=== PATIENT | female | born 1945 | race Caucasian/White ===

== ENCOUNTER 2022-03-12 15:58 | Inpatient (IN) | payer MEDICARE, OTHER, SELFPAY ==
[2022-03-12] VITALS (10 sets, daily range): BP systolic 137–185; BP diastolic 68–113; PULSE 92–111; RESP 16–24; TEMP 36.3–36.7; O2SAT 96–99; BMI 16.2; BMI 18.3
--- NOTE | 2022-03-12 16:14 | CT_ITS ---
INDICATION: head injury EXAMINATION: CT BRAIN - CT Head or Brain W/O Contrast Injection TECHNIQUE: Multiple axial images were obtained of the head without intravenous contrast. A radiation dose optimization technique was used for this scan. IV Contrast dosage and agent: None. RADIATION DOSAGE (If Supplied By Facility): CTDIvol = ( 44.99 ) mGy, DLP = ( 829.85 ) mGycm COMPARISON: No relevant prior examinations for comparison FINDINGS: HEMISPHERES: 1. The cerebral parenchyma, ventricular system, subarachnoid spaces have normal configuration and density. There is a normal gyral pattern. There is normal kahn/white differentiation. No midline shift.. 2. Minimal chronic deep white matter disease noted. 3. 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 4. No intraparenchymal mass, hemorrhage, or acute territorial infarct. CEREBELLUM - BRAINSTEM: The cerebellum, brainstem, basilar and suprasellar cisterns have normal appearance. No Chiari malformation. PITUITARY: Infundibulum and pituitary have normal configuration. Midline structures appear normal. CSF SPACES: Appropriate for age. No hydrocephalus. Basal cisterns are patent. VESSELS: 1. Extensive vascular calcifications involving the cavernous carotid vessels bilaterally. 2. No hyperdense vascular signs noted.. ORBITS AND PARANASAL SINUSES: 1. Normal appearance of the bony orbits. Normal appearance of the globes and retrobulbar soft tissues.. 2. Chronic sphenoid and ethmoid sinus mucosal thickening. No air-fluid levels present. BONY ELEMENTS: Bony elements of the cranial vault, facial skeleton and skull base have normal appearance. SCALP AND SOFT TISSUES: Normal appearance of the soft tissues of the scalp and the visualized face OTHER: None ASPECTS Score for Acute Strokes: 10 CT/Brain/Head without Contrast IMPRESSION: 1. 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 2. No mass, hemorrhage, or acute territorial infarct. 3. No intracranial evidence of acute traumatic injury. 4. No cranial facial fracture noted. 5. Chronic appearing sinus disease. 6. No intracranial mass, hemorrhage or acute territorial infarct. 7. 8. No radiographically significant sinus disease.. Electronically Signed: Zurdo Modi MD at 17:33 EDT ,
--- NOTE | 2022-03-12 16:14 | RAD_ITS ---
INDICATION: fall EXAMINATION/TECHNIQUE: X-RAY - XR Sacrum/Coccyx Min 2 Views COMPARISON: Imaging of the lumbar spine on the same date, 03/12/2022 FINDINGS: SACRUM/COCCYX: No displaced fracture, destructive or sclerotic lesions. Note that overlapping bowel shadows may however obscure fine detail in the frontal view. Postoperative changes are present involving the lower lumbar spine. SACRO-ILIAC JOINTS: The articular structures are unremarkable. SOFT TISSUES: No soft tissue swelling or gas. RAD/Sacrum-Coccyx min 2 Views IMPRESSION: Unremarkable sacro-coccygeal spine. Electronically Signed: Zurdo Modi MD at 18:44 EDT ,
--- NOTE | 2022-03-12 16:14 | RAD_ITS ---
INDICATION: fall EXAMINATION/TECHNIQUE: X-RAY - XR Spine Lumbar 2 or 3 Views COMPARISON: None. FINDINGS: VERTEBRAE: Vertebral body height is maintained, postoperative changes of pedicle screw posterior fixation from L3 to L5. There is a mild levoscoliotic curvature. No evidence of fracture or hardware failure. There is diffuse osteopenia. Normal appearance of the sacrum and sacroiliac joints. The pelvic ring is intact. DISCS: Disc spaces are maintained with the exception of postoperative changes likely representing intervertebral disc spacers at L3-4 and L4-5. INCLUDED ABDOMEN: Included bowel gas pattern is non-obstructive. RAD/Lumbar Spine 2 or 3 Views IMPRESSION: 1. Postoperative changes with pedicle screw posterior fixation and interbody fusion at L3-L5. 2. No evidence of fractures or hardware failure. 3. Levoscoliotic curvature is however noted. Electronically Signed: Zurdo Modi MD at 18:43 EDT ,
--- NOTE | 2022-03-12 16:15 | EKG12_ITS ---
Test Reason : FALL/SOB Blood Pressure : / mmHG Vent. Rate : 104 BPM Atrial Rate : 104 BPM P-R Int : 132 ms QRS Dur : 078 ms QT Int : 332 ms P-R-T Axes : 083 062 076 degrees QTc Int : 436 ms Sinus tachycardia Right atrial enlargement Inferior infarct , age undetermined Cannot rule out Anterior infarct , age undetermined Abnormal ECG Confirmed by KHADIJAH BRITT, VIVIEN ([id number]), sports editor PENNY GOMES ([id number]) on 03/15/2022 8:12:55 AM Referred By: AMRIT/JOIE Confirmed By:VIVIEN LUCIO MD
--- NOTE | 2022-03-12 16:17 | RAD_ITS ---
INDICATION: fall EXAMINATION/TECHNIQUE: X-RAY - XR Spine Cervical 2 or 3 Views COMPARISON: None. FINDINGS: VERTEBRAE: Vertebral body height is maintained. Lateral view only visualizes the cervical spine to the level of C5 however grossly normal alignment on AP view to the level of the thoracic spine. No fracture. There is a subtle grade 1 anterolisthesis of C4 on C5. Moderate facet hypertrophic changes noted from C3 to C5. The odontoid process has normal appearance. DISCS: Disc spaces are maintained. NECK SOFT TISSUES: No prevertebral soft tissue widening. LUNG APICES: Clear. RAD/Cerv Spine 2 or 3 Views IMPRESSION: 1. No evidence of fracture, limited visualization of the cervical spine on lateral view however. There is a grade 1 degenerative anterolisthesis of C4 on C5. 2. No fracture destructive bony process involving the visualized cervical spine. 3. Moderate facet arthropathy noted. Electronically Signed: Zurdo Modi MD at 18:39 EDT ,
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
[2022-03-12] MEDS: Ipratropium/Albuterol Sulfate 3 ML AMPUL.NEB INHALATION ×2 (16:22→20:16)
[2022-03-12 16:31] LABS: Absolute Lymphocyte Count 0.95 X10^3/uL (0.83-4.51); Absolute Neutrophil Count 16.4 X10^3/uL (2.0-7.7); Basophil# 0.03 X10^3/uL; Basophil% 0.2 % (0-1); Eosinophil# 0.04 X10^3/uL; Eosinophils% 0.2 % (0-5); Hematocrit 36.1 % (37-47); Hemoglobin 10.9 g/dL (12.0-15.0); Lymphocyte # 0.95 X10^3/ul (0.83-4.51); Lymphocyte % 5.1 % (19-41); Mean Corp Hgb Conc 30.2 g/dL (32-36); Mean Corpuscular Hgb 26.3 pg (27.0-32.0); Mean Platelet Vol. 9.4 fl (6.2-12.0); Monocyte# 0.99 X10^3/uL; Monocyte% 5.3 % (0-10); NRBC Flagged by Analyzer 0 % (0-5); Neutrophil # 16.41 X10^3/uL (2.7-7.7); Neutrophil % 88.3 % (47-70); Platelet Count 223 K/mm3 (150-450); RBC Distribution Width CV 13.6 % (11.6-14.6); RBC Distribution Width SD 42.7 fl (35.1-43.9); Red Blood Count 4.15 M/mm3 (4.2-5.4); White Blood Count 18.6 K/mm3 (4.4-11.0)
[2022-03-12] MEDS: MethylPREDNISolone 125 MG/2 ML Vial 80 MG IV (16:40)
[2022-03-12] MEDS: Albuterol 2.5 MG/3 ML VIAL.NEB. INHALATION ×2 (16:49→17:33)
[2022-03-12 17:00] LABS: Anion Gap 8 (5-15); BUN 17 mg/dL (7-18); BUN/Creat Ratio 32.3 RATIO (10-20); Calcium,Total 9.2 mg/dL (8.5-10.1); Chloride 103 mmol/L (98-107); Creatinine, Serum 0.53 mg/dL (0.55-1.02); EST Glomerular Filtration Rate 120 mL/min (>60); Est Glom Filt Rate - Afr Amer 146 mL/min (>60); Glucose 119 mg/dL (74-106); Potassium 3.4 mmol/L (3.5-5.1); Sodium Level 140 mmol/L (136-145); Troponin-I HS (w/2H Reflex) 412 pg/mL (3.0-54.0)
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
--- NOTE | 2022-03-12 17:02 | ED.RN ---
trop 412 called from the lab
[2022-03-12] MEDS: fentaNYL 100 MCG/2 ML Ampul 50 MCG IV (17:38)
[2022-03-12 18:29] LABS: Reflex Troponin-HS? (from REC) Y
--- NOTE | 2022-03-12 19:08 | HP.PCM.HOS_ITS ---
HPI - General General Date of Admission: 03/12/22 Date of Service: 03/12/22 Chief Complaint: shortness of breath HPI Narrative KRISSY CARDENAS, is a 76 F who presents with shortness of breath. Over the preceding few days, patient has been more short of breath than her baseline. Patient does have chronic respiratory failure on 2 L of oxygen continuous due to COPD. Today, the patient was at a [email or web address] meet where it was windy and cold. Patient was began to get more short of breath despite being on her oxygen and her daughter was trying to get her out. Patient was sitting on her Rollator as her daughter was wheeling her out and then it hit a bump in the sidewalk and it felt backwards. Patient struck the back of her head but did not lose consciousness. The daughter, who was helping her is present and stated that it was a slow fall. Patient was brought here via EMS and had cervical spine x- ray sacral x-ray and lumbar spine x-ray that showed no acute process. Head CT showed no intracranial process. Patient received bronchodilators, methylprednisolone and a dose of IV fentanyl in the emergency room. Patient is complaining of low back pain. Patient had a troponin that was elevated in the emergency room at 412 and then went to the 755. Patient denies any chest pain. [facility] Medical History (Updated 03/12/22 @ 19:[address] Xavi Almendarez ) Congestive heart failure (CHF) COPD (chronic obstructive pulmonary disease) History of breast cancer PAD (peripheral artery disease) Protein calorie malnutrition Takotsubo cardiomyopathy Home Medications albuterol sulfate 90 mcg/actuation aerosol inhaler 2 puff inhalation Q4H PRN SOB 03/12/22 [History Last Taken Unknown] atorvastatin 40 mg tablet 40 mg PO QHS 03/12/22 [History Last Taken Unknown] budesonide-formoterol HFA 160 mcg-4.5 mcg/actuation aerosol inhaler (Symbicort) 2 puff inhalation BID 03/12/22 [History Last Taken Unknown] bupropion HCl 150 mg 24 hr tablet, extended release 150 mg PO BID 03/12/22 [History Last Taken Unknown] carvedilol 3.125 mg tablet 3.125 mg PO BID 03/12/22 [History Last Taken Unknown] clopidogrel 75 mg tablet 75 mg PO DAILY 03/12/22 [History Last Taken Unknown] fluticasone propionate 50 mcg/actuation nasal spray,suspension 1 spray intranasal BID 03/12/22 [History Last Taken Unknown] furosemide 20 mg tablet 20 mg PO DAILY 03/12/22 [History Last Taken Unknown] gabapentin 300 mg capsule 300 mg PO QHS 03/12/22 [History Last Taken Unknown] hydromorphone 4 mg tablet 4 mg PO BID 03/12/22 [History Last Taken Unknown] isosorbide mononitrate 30 mg tablet,extended release 24 hr 30 mg PO DAILY 03/12/22 [History Last Taken Unknown] levothyroxine 100 mcg tablet 100 mcg PO DAILY 03/12/22 [History Last Taken Unknown] pantoprazole 40 mg tablet,delayed release 40 mg PO DAILY 03/12/22 [History Last Taken Unknown] sacubitril 24 mg-valsartan 26 mg tablet (Entresto) 1 tab PO BID 03/12/22 [History Last Taken Unknown] sertraline 50 mg tablet 50 mg PO DAILY 03/12/22 [History Last Taken Unknown] tiotropium bromide 18 mcg capsule with inhalation device (Spiriva with HandiHaler) 1 cap inhalation DAILY 03/12/22 [History Last Taken Unknown] tizanidine 2 mg tablet 2 mg PO TID PRN Muscle Spasm 03/12/22 [History Last Taken Unknown] tramadol 50 mg tablet 1 mg PO Q8H PRN Pain 03/12/22 [History Last Taken Unknown] Allergy/AdvReac Type Severity Reaction Status Date / Time clindamycin Allergy GERD Verified 03/12/22 16:02 erythromycin base Allergy GERD Verified 03/12/22 16:02 lemon Allergy Anaphylaxis Verified 03/12/22 16:02 win[place]ago Allergy Anaphylaxis Verified 03/12/22 16:02 morphine Allergy Itching Verified 03/12/22 16:02 walnut [walnuts] Allergy Angioedema Verified 03/12/22 16:02 Family History (Updated 03/12/22 @ 19:[address] Xavi Almendarez DO) Mother COPD (chronic obstructive pulmonary disease) Heart disease Surgical History (Updated 03/12/22 @ 19:[address] Xavi Almendarez DO) H/O arterial bypass of lower limb History of partial mastectomy of left breast Previous back surgery Social History (Updated 03/12/22 @ 19:[address] Xavi Jopperi, DO) Smoking Status: Former smoker how long ago did patient quit smokin alcohol intake: current alcohol intake frequency: other details: rare ROS ROS Narrative No fever chills. No sore throat or rhinitis. No dysuria but has noticed a foul odor in her urine. Vital Signs Vital Signs Vital Signs: 03/12/22 16:04 03/12/22 16:04 03/12/22 16:24 Temperature 36.6 C Temperature Source Oral Pulse Rate 101 H 102 H Respiratory Rate 22 H 24 H Respiratory Effort Short of Breath Respiratory Depth Normal Respiratory Pattern Normal Blood Pressure 163/82 H Blood Pressure Mean 109 Pulse Ox 98 Oxygen Delivery Method Room Air Nasal Cannula Oxygen Flow Rate (L/min) 2 2 03/12/22 16:24 03/12/22 16:50 03/12/22 17:54 Temperature Temperature Source Pulse Rate 95 Respiratory Rate 16 Respiratory Effort Respiratory Depth Respiratory Pattern Blood Pressure Blood Pressure Mean Pulse Ox 97 Oxygen Delivery Method Nasal Cannula Nasal Cannula Oxygen Flow Rate (L/min) 2 2 03/12/22 18:21 03/12/22 18:22 Temperature 36.7 C Temperature Source Oral Pulse Rate 94 94 Respiratory Rate 17 17 Respiratory Effort Respiratory Depth Respiratory Pattern Blood Pressure 137/68 H 137/68 H Blood Pressure Mean 91 91 Pulse Ox 96 96 Oxygen Delivery Method Nasal Cannula Room Air Oxygen Flow Rate (L/min) 2 Weight Weight: 44.4 kg Body Mass Index (BMI) 16.2 Physical Exam Const alert and no apparent distress Constitutional Narrative: No respiratory distress. No conversational dyspnea. HEENT normocephalic and head/scalp atraumatic HEENT Narrative: Temporal wasting. Mucous membranes moist Eyes Eyes Narrative: No icterus Neck no lymphadenopathy Neck Narrative: Positive JVD. No thyromegaly. Resp Resp Narrative: Diminished throughout with faint wheezings. Cardio regular rate, regular rhythm, S1 normal heart sound and S2 normal heart sound GI normal to inspection, nondistended, normoactive bowel sounds, soft to palpation, non-tender and non-distended Extremity Extremity Narrative: Muscle wasting throughout. +1 dorsalis pedal pulses in the feet bilaterally. Neuro oriented x3 and CN's II-XII intact bilaterally Psych affect normal Results Lab / Micro Data Attestation: I reviewed the patient's lab results. Result Diagrams: 03/12/22 16:25 03/12/22 16:25 Labs: Laboratory Results - last 24 hr 03/12/22 16:25: WBC 18.6 H, RBC 4.15 L, Hgb 10.9 L, Hct 36.1 L, MCV 87.0, MCH 26.3 L, MCHC 30.2 L, RDW Std Deviation 42.7, RDW Coeff of Haley 13.6, Plt Count 223, MPV 9.4, Immature Gran % (Auto) 0.900, Neut % (Auto) 88.3 H, Lymph % (Auto) 5.1 L, [place] % (Auto) 5.3, Eos % (Auto) 0.2, Baso % (Auto) 0.2, Absolute Neuts (auto) 16.4 H, Absolute Lymphs (auto) 0.95, Nucleated RBC % 0 03/12/22 16:25: Sodium 140, Potassium 3.4 L, Chloride 103, Carbon Dioxide 29.0, Anion Gap 8, BUN 17, Creatinine 0.53 L, Estim Creat Clear Calc 34.60, Est GFR (MDRD) Af Amer 146, Est GFR (MDRD) Non-Af 120, BUN/Creatinine Ratio 32.3 H, Glucose 119 H, Calcium 9.2, Troponin I High Sens 412 H* EKG Initial EKG: Attestation: I personally reviewed and interpreted this EKG as follows: Prior EKG tracings: available for review EKG Rhythm Intrepretation: Sinus Tachycardia (Right in short management with inferior Q waves. No prior EKG to be able to compare to) Radiology Impression Brain CT 03/12/22 16:14 IMPRESSION: 1. 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 2. No mass, hemorrhage, or acute territorial infarct. 3. No intracranial evidence of acute traumatic injury. 4. No cranial facial fracture noted. 5. Chronic appearing sinus disease. 6. No intracranial mass, hemorrhage or acute territorial infarct. 7. 8. No radiographically significant sinus disease.. Electronically Signed: Zurdo Modi MD at 17:33 EDT , Lumbar Spine X-Ray 03/12/22 16:14 IMPRESSION: 1. Postoperative changes with pedicle screw posterior fixation and interbody fusion at L3-L5. 2. No evidence of fractures or hardware failure. 3. Levoscoliotic curvature is however noted. Electronically Signed: Zurdo Modi MD at 18:43 EDT , Sacrum and Coccyx X-Ray 03/12/22 16:14 IMPRESSION: Unremarkable sacro-coccygeal spine. Electronically Signed: Zurdo Modi MD at 18:44 EDT , Cervical Spine X-Ray 03/12/22 16:17 IMPRESSION: 1. No evidence of fracture, limited visualization of the cervical spine on lateral view however. There is a grade 1 degenerative anterolisthesis of C4 on C5. 2. No fracture destructive bony process involving the visualized cervical spine. 3. Moderate facet arthropathy noted. Electronically Signed: Zurdo Modi MD at 18:39 EDT , Chest X-Ray 03/12/22 17:00 IMPRESSION: 1. Diffuse interstitial prominence at the lung bases. Mild interstitial infiltrate versus atelectasis are considerations. 2. No consolidation, effusion or pneumothorax. 3. No acute bony changes. Electronically Signed: Zurdo Modi MD at 18:41 EDT , Assessment & Plan Assessment/Plan (1) COPD exacerbation: PLAN: Symptoms though her symptoms have been going on for some period of time. Got worse while she was [place] worse cold and may have exacerbated her symptoms further. Plan: * Bronchodilators * Steroids (2) Non-STEMI (non-ST elevated myocardial infarction): PLAN: Suspect type II event though the troponins went from 412 to 755. Likely due to the patient's transient hypoxia and underlying likely cardiomyopathy. Patient had a heart cath last year at [place] that showed that she had Takotsubo's cardiomyopathy. Plan: * If the third troponin comes back trending higher then would recommend anticoagulation and cardiology consultation. Being that she is not having any chest pain whatsoever and having had a relatively recent cardiac catheterization denies any urgency at this point time cardiology involvement. Though Dr. Nova was contacted through the emergency room. * Check 2D echocardiogram * Check records from [place], where her cardiac catheterization was performed. (3) Acute and chronic respiratory failure with hypoxia: PLAN: Due to COPD exacerbation I do not feel the patient is having a CHF exacerbation as x-ray does not look wet nor does she have any peripheral edema Patient's baseline oxygen is 2 L continuous (4) Fall: QUALIFIERS: Encounter type: initial encounter Qualified Code(s): W19.XXXA - Unspecified fall, initial encounter PLAN: This was due to her Rollator, as patient was being cooled, hitting either raised concrete or some kind of bump let the daughter to lose control of it and the patient fell backwards. X-rays and CAT scan were negative for any acute process. Will have PT OT evaluate her and case management is facilitate discharge planning. It is unclear if patient will require higher level of physical therapy needs upon discharge. (5) Protein calorie malnutrition: PLAN: Likely due to the patient's chronic medical conditions Plan: * At supplements with Ensure * Consult nutrition for further recommendations PLAN: Plan Chronic conditions * PAD: Continue with atorvastatin, clopidogrel. Patient is going to be fol lowing up with Dr. Carnes for further follow-up * Chronic pain: Reviewed OARRS. Confirm the patient is taking tramadol as well as gabapentin. Has not received a prescription for hydromorphone since A ugust. * Hypothyroidism: Continue levothyroxine * Depression: Continue sertraline VTE prophylaxis: Low molecular weight heparin CODE STATUS: Addressed with the patient. Patient wishes to be DNR Comfort Care arrest. She is okay with short-term intubation. Charges/Coding Visit Charges Inpatient E&M: 33096 Init Hosp L3
[2022-03-12 19:13] LABS: Troponin-I HS 755 pg/mL (3.0-54.0)
--- NOTE | 2022-03-12 19:14 | ED.RN ---
CRITICAL TROPONIN LEVEL OF [address] HOLLAND NOTIFIED
--- NOTE | 2022-03-12 19:43 | ECHOD_ITS ---
Reason For Study: NSTEMI Procedure This was a 2D Doppler, Color Flow transthoracic echocardiogram. The study was technically difficult. Exam performed portable in patient room. Left Ventricle Normal LV size. Left ventricular systolic function is hyperdynamic. The estimated ejection fraction is 75 %. Diastolic function is indeterminate. No regional wall motion abnormalities noted. Right Ventricle Normal RV size. Normal systolic function. Atria Normal left atrium. Normal right atrium. No doppler evidence for ASD. Mitral Valve There is no mitral annular calcification. Normal mitral valve. Trivial mitral valve insufficiency. Tricuspid Valve Normal tricuspid valve. Mild tricuspid valve insufficiency. Right ventricular systolic pressure estimated to be 54 mmHg. Aortic Valve Trisinus/trileaflet aortic valve. Mild focal aortic valve calcification. Pulmonic Valve The pulmonic valve is not well visualized. Great Vessels The aortic root is not well visualized. 2D echocardiographic images of the IVC demonstrate a somewhat linear mobile echodensity of uncertain etiology. Concern for further noncardiac/radiologic evaluation of this area as clinically indicated. Pericardium/Pleural No pericardial effusion. MMode/2D Measurements & Calculations RVDd: 2.9 cm LAV(MOD-sp4): 27.5 ml LVAd ap4: 21.3 cm2 LVLd ap4: 7.3 cm EDV(MOD-sp4): 52.1 ml EDV(sp4-el): 52.9 ml LVAs ap4: 11.3 cm2 LVLs ap4: 5.6 cm ESV(MOD-sp4): 19.6 ml ESV(sp4-el): 19.4 ml EF(MOD-sp4): 62.5 % EF(sp4-el): 63.4 % SV(MOD-sp4): 32.6 ml SV(sp4-el): 33.5 ml LA A4 area: 12.3 cm2 RA A4 area: 12.2 cm2 Time Measurements MV dec time: 0.15 sec Doppler Measurements & Calculations MV E max jim: 84.6 cm/sec Lat Peak E' Jim: 9.4 cm/sec Med Peak E' Jim: 9.4 cm/sec MV A max jim: 103.2 cm/sec E/E' lat: 9.0 E/E' med: 9.0 MV E/A: 0.82 MV V2 max: 124.0 cm/sec MV dec slope: 554.5 cm/sec2 Ao V2 max: 183.1 cm/sec MV max P.2 mmHg Ao max P.4 mmHg MV V2 mean: 83.9 cm/sec Ao V2 mean: 131.7 cm/sec MV mean P.1 mmHg Ao mean P.7 mmHg MV V2 VTI: 26.0 cm Ao V2 VTI: 36.1 cm MR max jim: 523.9 cm/sec PA V2 max: 168.9 cm/sec TR max jim: 340.5 cm/sec MR max P.8 mmHg TR max P.4 mmHg ECHO/Echo Complete Interpretation Summary Left ventricular systolic function is hyperdynamic. The estimated ejection fraction is 75 %. Trivial mitral valve insufficiency. Mild tricuspid valve insufficiency. Mild focal aortic valve calcification. Right ventricular systolic pressure estimated to be 54 mmHg c/w pulmonary hyper tension. Diastolic function is indeterminate. 2D echocardiographic images of the IVC demonstrate a somewhat linear mobile ech odensity of uncertain etiology. Concern for further noncardiac/radiologic evaluation of this area as clinically indicated. Ordering Physician: Xavi Almendarez Referring Physician: JAMIL PCP Performed By: Vanessa Rosas RCS
--- NOTE | 2022-03-12 19:43 | EKG12_ITS ---
Test Reason : NSTEMI Blood Pressure : / mmHG Vent. Rate : 102 BPM Atrial Rate : 102 BPM P-R Int : 136 ms QRS Dur : 078 ms QT Int : 346 ms P-R-T Axes : 085 035 078 degrees QTc Int : 450 ms Sinus tachycardia Inferior infarct , age undetermined Cannot rule out Anterior infarct , age undetermined Abnormal ECG Confirmed by KHADIJAH BRITT, VIVIEN ([id number]), sports editor PENNY GOMES ([id number]) on 03/15/2022 11:03:53 AM Referred By: Confirmed By:VIVIEN LUCIO MD
[2022-03-12] MEDS: Potassium Chloride Oral Tablet 20 MEQ 40 MEQ PO (20:41)
[2022-03-12] MEDS: oxyCODONE 5 MG Tablet PO (20:42)
--- NOTE | 2022-03-12 21:25 | PCM.HOSP.N ---
Hospitalist Note Trop trending upward. Given acute presentation still suspected demand; however, to be cautious will transition to heparin drip, obtain coags, add asa in addition to plavix, ECHO already ordered, obtain mag level and FLP in AM.
[2022-03-12 22:04] LABS: International Normalized Ratio 1.3; Prothrombin Time (Protime)PT. 15.7 SECONDS (11.7-14.9)
[2022-03-12] MEDS: Atorvastatin Calcium 40 MG Tablet PO (22:24)
[2022-03-12] MEDS: Carvedilol 3.125 MG TABLET PO (22:24)
[2022-03-12] MEDS: buPROPion (XL) 150 MG TABLET.XL PO (22:24)
[2022-03-12] MEDS: Gabapentin 300 MG Capsule PO (22:24)
[2022-03-12] MEDS: SACUBITRIL/VALSARTAN 24/26 MG TABLET 1 EACH PO (22:25)
[2022-03-12] MEDS: Acetaminophen 500 MG Tablet 1000 MG PO (22:25)
[2022-03-12] MEDS: Fluticasone 0.05% 1 SPRAY NASAL.SRY NASAL (22:25)
[2022-03-12 22:29] LABS: Magnesium 1.8 mg/dL (1.6-2.6); Troponin-I HS 908 pg/mL (3.0-54.0)
[2022-03-12] MEDS: Heparin Injection (Vial) 5,000 UNIT/ML VIAL 3500 UNIT IV (22:31)
[2022-03-12] MEDS: HEPARIN/D5w 25,000 UNITS 25,000 UNITS/250 ML IV.SOLN. 7 UNITS CONT INF (22:32)
[2022-03-13] VITALS (20 sets, daily range): BP systolic 111–154; BP diastolic 62–86; PULSE 84–100; RESP 16–25; TEMP 35.9–36.9; O2SAT 93–99
[2022-03-13] MEDS: Ipratropium/Albuterol Sulfate 3 ML AMPUL.NEB INHALATION ×6 (01:15→23:30)
[2022-03-13] MEDS: tiZANidine HCl 2 MG Tablet PO ×2 (01:39→17:57)
[2022-03-13] MEDS: oxyCODONE 5 MG Tablet PO ×3 (04:22→16:00)
[2022-03-13 04:41] LABS: Basophil# 0.02 X10^3/uL; Basophil% 0.2 % (0-1); Hematocrit 35.5 % (37-47); Hemoglobin 10.7 g/dL (12.0-15.0); Lymphocyte % 5.3 % (19-41); Mean Corp Hgb Conc 30.1 g/dL (32-36); Mean Corpuscular Hgb 25.8 pg (27.0-32.0); Mean Corpuscular Volume 85.7 fL (81-99); Mean Platelet Vol. 9.6 fl (6.2-12.0); Monocyte% 3.8 % (0-10); NRBC Flagged by Analyzer 0 % (0-5); Neutrophil # 11.96 X10^3/uL (2.7-7.7); Neutrophil % 90.2 % (47-70); Platelet Count 204 K/mm3 (150-450); RBC Distribution Width CV 13.7 % (11.6-14.6); RBC Distribution Width SD 42.8 fl (35.1-43.9); Red Blood Count 4.14 M/mm3 (4.2-5.4); White Blood Count 13.3 K/mm3 (4.4-11.0)
[2022-03-13 05:00] LABS: Partial Thromboplast Time 128.5 Seconds (24.1-36.2)
[2022-03-13] MEDS: Acetaminophen 500 MG Tablet 1000 MG PO ×3 (05:08→21:19)
[2022-03-13] MEDS: Levothyroxine 100 MCG Tablet PO (05:09)
[2022-03-13 05:11] LABS: Mucous, Urine 0 SEEN /hpf (<or=2+); Red Blood Cells-Urine 0 SEEN /hpf (0-5)
[2022-03-13 05:18] LABS: Anion Gap 6 (5-15); BUN 13 mg/dL (7-18); BUN/Creat Ratio 29.6 RATIO (10-20); Calcium,Total 9.2 mg/dL (8.5-10.1); Chloride 105 mmol/L (98-107); Cholesterol 188 mg/dL (200); Creatinine, Serum 0.44 mg/dL (0.55-1.02); EST Glomerular Filtration Rate 149 mL/min (>60); Est Glom Filt Rate - Afr Amer 180 mL/min (>60); Estimated Creatinine Clearance 33.19 ml/min; Glucose 165 mg/dL (74-106); High Density Lipoprotein 95 mg/dL; Potassium 4.7 mmol/L (3.5-5.1); Sodium Level 140 mmol/L (136-145); Triglycerides 51 mg/dL; Very Low Density Lipoprotein 10 mg/dL (5-40)
[2022-03-13 05:27] LABS: Color, Urine Yellow (Yellow); Glucose, Dipstick Normal (Normal); Ketone-Dipstick 15 mg/dl (Negative); Leukocyte Esterase-Dipstick 25 /ul (Negative); Nitrite-Dipstick Positive (Negative); Occult Blood-Urine 25 /ul (Negative); Protein-Dipstick 30 mg/dl (Negative); Specific Gravity, Urine 1.015 (1.002-1.030); Urine Bilirubin Dipstick Negative (Negative); Urine Clarity Sl. Cloudy (Clear); Urine Urobilinogen Normal (Normal)
[2022-03-13 05:53] LABS: Bacteria 4+ /hpf (None Seen); Squamous Epithelial Cells - UA 0-5 SEEN /hpf (5-10); White Blood Cells 0-5 SEEN /hpf (0-5)
[2022-03-13] MEDS: Ceftriaxone 1 GM/50 ML BAG IV (06:25)
[2022-03-13] MEDS: 0.9% Saline Lock 10 ML Syringe IV ×2 (06:53→13:42)
[2022-03-13] MEDS: Albuterol 2.5 MG/3 ML VIAL.NEB. INHALATION (07:17)
[2022-03-13] MEDS: Ensure Clear 120 ML Liquid PO ×2 (10:19→13:42)
[2022-03-13] MEDS: Fluticasone 0.05% 1 SPRAY NASAL.SRY NASAL ×2 (10:20→21:18)
[2022-03-13] MEDS: Aspirin 81 MG TAB.CHEW PO (10:42)
[2022-03-13] MEDS: Carvedilol 3.125 MG TABLET PO ×2 (10:42→21:18)
[2022-03-13] MEDS: SACUBITRIL/VALSARTAN 24/26 MG TABLET 1 EACH PO ×2 (10:42→21:19)
[2022-03-13] MEDS: Isosorbide Mononitrate 30 MG Tablet PO (10:43)
[2022-03-13] MEDS: Pantoprazole Sodium 40 MG Tablet PO (10:43)
[2022-03-13] MEDS: Furosemide 20 MG Tablet PO (10:43)
[2022-03-13] MEDS: Sertraline 50 MG Tablet PO (10:43)
[2022-03-13] MEDS: buPROPion (XL) 150 MG TABLET.XL PO ×2 (10:43→21:19)
[2022-03-13] MEDS: Clopidogrel Bisulfate 75 MG Tablet PO (10:43)
--- NOTE | 2022-03-13 13:38 | PCM.PN.HOSP ---
Subjective Subjective Follow-up on acute COPD exacerbation/Non-STEMI: Patient was seen and examined. She complains of pain in her back. Denies any new complaints. Denies any chest pain or dizziness or palpitations. Objective Data Objective Data Vital Signs: Vital Signs Temp Pulse Resp BP Pulse Ox O2 Del Method O2 Flow Rate 96.7 F L 84 20 H 136/64 H 93 Nasal Cannula 2 03/13/22 10:10 03/13/22 10:26 03/13/22 10:26 03/13/22 10:10 03/13/22 10:10 03/13/22 10:10 03/13/22 10:10 Oxygen Flow Rate (L/min) 2 Oxygen Delivery Method Nasal Cannula Weight: 42.6 kg Body Mass Index (BMI) 18.3 Intake & Output: Intake and Output for Last 24 Hours 03/11/22 03/12/22 03/13/22 23:59 23:59 23:59 Intake Total 95.85 / 95.85 Balance 95.85 / 95.85 Medical Nutrition Assessment Dietitian: Malnutrition Criteria Met Start: 03/13/22 12:30 Freq: Status: Active Protocol: Document 03/13/22 12:30 AG (Rec: 03/13/22 12:30 [id number]) Nutrition Malnutrition Evidence of Malnutrition Exists Yes Malnutrition (moderate): Chronic Evidenced By Suboptimal Energy Intake ( Moderate),Physical Changes ( Moderate) Clinical Problem Chronic Disease or Condition Related Malnutrition Etiology moderate, chronic malnutrition related to inadequate energy intake Signs/Symptoms as evidenced by estimated PO intake meeting <75% of estimated energy needs >1 month; moderate muscle wasting /fat loss evident per physical exam in orbital, temporal, clavicle, and acromion areas; BMI 18.3 Status Active Problem Recommendation Dietitian Recommendations/Changes continue cardiac diet as ordered; will consider liberalizing diet if PO intake worsens; will increase ensure clear to 120mL 4x/day w/ medpass and add 120mL ensure plus high protein TID w/ meals for additional calories/ protein if consumed. Lab / Micro Data Result Diagrams: 03/13/22 04:25 03/13/22 04:15 Labs: Laboratory Results - last 24 hr 03/12/22 16:25: WBC 18.6 H, RBC 4.15 L, Hgb 10.9 L, Hct 36.1 L, MCV 87.0, MCH 26.3 L, MCHC 30.2 L, RDW Std Deviation 42.7, RDW Coeff of Haley 13.6, Plt Count 223, MPV 9.4, Immature Gran % (Auto) 0.900, Neut % (Auto) 88.3 H, Lymph % (Auto) 5.1 L, [place] % (Auto) 5.3, Eos % (Auto) 0.2, Baso % (Auto) 0.2, Absolute Neuts (auto) 16.4 H, Absolute Lymphs (auto) 0.95, Nucleated RBC % 0 03/12/22 16:25: Sodium 140, Potassium 3.4 L, Chloride 103, Carbon Dioxide 29.0, Anion Gap 8, BUN 17, Creatinine 0.53 L, Estim Creat Clear Calc 34.60, Est GFR (MDRD) Af Amer 146, Est GFR (MDRD) Non-Af 120, BUN/Creatinine Ratio 32.3 H, Glucose 119 H, Calcium 9.2, Troponin I High Sens 412 H* 03/12/22 18:40: Troponin I High Sens 755 H* 03/12/22 21:48: Magnesium 1.8, Troponin I High Sens 908 H* 03/12/22 21:48: PT 15.7 H, INR 1.3, APTT 34.0 03/13/22 03:23: Urine Color Yellow, Urine Clarity Sl. Cloudy, Urine pH 6.0, Ur Specific [place] 1.015, Urine Protein 30 H, Urine Glucose (UA) Normal, Urine Ketones 15 H, Urine Occult Blood 25 H, Urine Nitrite Positive H, Urine Bilirubin Negative, Urine Urobilinogen Normal, Ur Leukocyte Esterase 25 H, Urine RBC 0 SEEN, Urine WBC 0-5 SEEN, Ur Squamous Epith Cells 0-5 SEEN, Urine Bacteria 4+, Urine Mucus 0 SEEN 03/13/22 04:15: Sodium 140, Potassium 4.7, Chloride 105, Carbon Dioxide 29.0, Anion Gap 6, BUN 13, Creatinine 0.44 L, Estim Creat Clear Calc 33.19, Est GFR (MDRD) Af Amer 180, Est GFR (MDRD) Non-Af 149, BUN/Creatinine Ratio 29.6 H, Glucose 165 H, Calcium 9.2, Magnesium 2.0, Triglycerides 51, Cholesterol 188, LDL Cholesterol 83, VLDL Cholesterol 10, HDL Cholesterol 95 03/13/22 04:25: WBC 13.3 H, RBC 4.14 L, Hgb 10.7 L, Hct 35.5 L, MCV 85.7, MCH 25.8 L, MCHC 30.1 L, RDW Std Deviation 42.8, RDW Coeff of Haley 13.7, Plt Count 204, MPV 9.6, Immature Gran % (Auto) 0.500, Neut % (Auto) 90.2 H, Lymph % (Auto) 5.3 L, [place] % (Auto) 3.8, Eos % (Auto) 0.0, Baso % (Auto) 0.2, Absolute Neuts (auto) 12.0 H, Absolute Lymphs (auto) 0.70 L, Nucleated RBC % 0 03/13/22 04:25: APTT 128.5 H* Radiography Diagnostic Testing: Radiology Impression Brain CT 03/12/22 16:14 IMPRESSION: 1. 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 2. No mass, hemorrhage, or acute territorial infarct. 3. No intracranial evidence of acute traumatic injury. 4. No cranial facial fracture noted. 5. Chronic appearing sinus disease. 6. No intracranial mass, hemorrhage or acute territorial infarct. 7. 8. No radiographically significant sinus disease.. Electronically Signed: Zurdo Modi MD at 17:33 EDT , Lumbar Spine X-Ray 03/12/22 16:14 IMPRESSION: 1. Postoperative changes with pedicle screw posterior fixation and interbody fusion at L3-L5. 2. No evidence of fractures or hardware failure. 3. Levoscoliotic curvature is however noted. Electronically Signed: Zurdo Modi MD at 18:43 EDT , Sacrum and Coccyx X-Ray 03/12/22 16:14 IMPRESSION: Unremarkable sacro-coccygeal spine. Electronically Signed: Zurdo Modi MD at 18:44 EDT , Cervical Spine X-Ray 03/12/22 16:17 IMPRESSION: 1. No evidence of fracture, limited visualization of the cervical spine on lateral view however. There is a grade 1 degenerative anterolisthesis of C4 on C5. 2. No fracture destructive bony process involving the visualized cervical spine. 3. Moderate facet arthropathy noted. Electronically Signed: Zurdo Modi MD at 18:39 EDT , Chest X-Ray 03/12/22 17:00 IMPRESSION: 1. Diffuse interstitial prominence at the lung bases. Mild interstitial infiltrate versus atelectasis are considerations. 2. No consolidation, effusion or pneumothorax. 3. No acute bony changes. Electronically Signed: Zurdo Modi MD at 18:41 EDT , Physical Exam Narrative Physical exam: General: Alert, Oriented x3, Cooperative, appears very frail HEENT: Atraumatic Oral: Moist Mucosa Neck: Supple Lungs:Diminished to auscultation Cardiovascular: HS I+II, regular, no murmurs Abdomen: Bowel Sounds Present, Soft, Non Tender Extremities: No edema Skin: No rashes, No breakdown Neurological: Grossly intact Psych/Mental Status: Appropriate Assessment & Plan Assessment/Plan (1) Acute and chronic respiratory failure with hypoxia: (2) Non-STEMI (non-ST elevated myocardial infarction): (3) COPD exacerbation: PLAN: Plan 1.Acute COPD exacerbation in a patient with chronic hypoxic respiratory failure, on 2 L of oxygen Respiratory panel is pending Chest x-ray shows diffuse interstitial prominence of the lung bases, mild interstitial infiltrate versus atelectasis We will continue with breathing treatment, IV steroids, encourage use of incentive spirometer Wean off oxygen for SPO2 more than 94% 2. Acute non-STEMI, started on heparin drip Continue on Coreg, aspirin, Plavix, atorvastatin, isosorbide, Entresto 2D echo is pending Cardiology consulted 3. Acute UTI, urine cultures pending, continue on IV ceftriaxone 4. Recent falls/chronic pain syndrome, Brain CT is unremarkable Lumbar spine x-ray shows postoperative changes with pedicle screw posterior fixation interbody fusion at L3-L5 Sacral and coccygeal x-ray unremarkable CT of the spine is also unremarkable Continue on gabapentin, scheduled Tylenol PT and OT to evaluate and treat 5. Malnutrition, moderate, chronic, continue on supplements 6. Hypothyroidism, continue on Synthroid 7. Depression, continue Zoloft, bupropion 8. DVT Prophylaxis?on heparin drip Charges/Coding Visit Charges Inpatient E&M: 06738 Subs Hosp L2
[2022-03-13 14:22] LABS: Partial Thromboplast Time 36.4 Seconds (24.1-36.2)
[2022-03-13] MEDS: Calcium Carbonate 500 MG Tablet PO (14:45)
[2022-03-13] MEDS: Heparin Injection (Vial) 5,000 UNIT/ML VIAL IV (14:45)
--- NOTE | 2022-03-13 15:24 | PCM.CONS.C ---
Assessment & Plan Assessment/Plan (1) Elevated troponin: PLAN: Likely type II in the setting of COPD exacerbation and anemia. She had coronary angiography in January 2021 and it did not show significant obstructive CAD. She did have Takotsubo cardiomyopathy at that time. It is possible that she has recurrence of Takotsubo cardiomyopathy at this time as well. It is reasonable to check a 2D echo. I feel that it is reasonable not to anticoagulate the patient or change her home medications for CAD at this time. HPI Consult Data Date of Consult: 03/13/22 HPI Narrative Reason for Consultation: Elevated troponin HPI Narrative: KRISSY CARDENAS, is a 76 F who presents with shortness of breath. She is being treated for COPD exacerbation. Shortness of breath has improved but not back to baseline. She feels better after breathing treatments. Cardiology consult was requested as her troponin went up to the 900s. Patient has had heart caths twice in the last 3 years. She had mild nonobstructive disease. Her last heart cath was in January 2021. At that time her EF was 35% and in the setting of mild CAD she was diagnosed with Takotsubo cardiomyopathy. A follow-up echo in June of this year showed no regional wall motion abnormalities and an EF of around 65%. Patient also has anemia with a hemoglobin of 10.5. She denies any chest pain. [facility]LY [facility] Medical History (Updated 03/12/22 @ 19:[address] Xavi Almendarez, ) Congestive heart failure (CHF) COPD (chronic obstructive pulmonary disease) History of breast cancer PAD (peripheral artery disease) Protein calorie malnutrition Takotsubo cardiomyopathy Home Medications albuterol sulfate 90 mcg/actuation aerosol inhaler 2 puff inhalation Q4H PRN SOB 03/12/22 [History Last Taken Unknown] atorvastatin 40 mg tablet 40 mg PO QHS 03/12/22 [History Last Taken Unknown] budesonide-formoterol HFA 160 mcg-4.5 mcg/actuation aerosol inhaler (Symbicort) 2 puff inhalation BID 03/12/22 [History Last Taken Unknown] bupropion HCl 150 mg 24 hr tablet, extended release 150 mg PO BID 03/12/22 [History Last Taken Unknown] carvedilol 3.125 mg tablet 3.125 mg PO BID 03/12/22 [History Last Taken Unknown] clopidogrel 75 mg tablet 75 mg PO DAILY 03/12/22 [History Last Taken Unknown] fluticasone propionate 50 mcg/actuation nasal spray,suspension 1 spray intranasal BID 03/12/22 [History Last Taken Unknown] furosemide 20 mg tablet 20 mg PO DAILY 03/12/22 [History Last Taken Unknown] gabapentin 300 mg capsule 300 mg PO QHS 03/12/22 [History Last Taken Unknown] hydromorphone 4 mg tablet 4 mg PO BID 03/12/22 [History Last Taken Unknown] isosorbide mononitrate 30 mg tablet,extended release 24 hr 30 mg PO DAILY 03/12/22 [History Last Taken Unknown] levothyroxine 100 mcg tablet 100 mcg PO DAILY 03/12/22 [History Last Taken Unknown] pantoprazole 40 mg tablet,delayed release 40 mg PO DAILY 03/12/22 [History Last Taken Unknown] sacubitril 24 mg-valsartan 26 mg tablet (Entresto) 1 tab PO BID 03/12/22 [History Last Taken Unknown] sertraline 50 mg tablet 50 mg PO DAILY 03/12/22 [History Last Taken Unknown] tiotropium bromide 18 mcg capsule with inhalation device (Spiriva with HandiHaler) 1 cap inhalation DAILY 03/12/22 [History Last Taken Unknown] tizanidine 2 mg tablet 2 mg PO TID PRN Muscle Spasm 03/12/22 [History Last Taken Unknown] tramadol 50 mg tablet 1 mg PO Q8H PRN Pain 03/12/22 [History Last Taken Unknown] Allergy/AdvReac Type Severity Reaction Status Date / Time clindamycin Allergy GERD Verified 03/12/22 16:02 erythromycin base Allergy GERD Verified 03/12/22 16:02 lemon Allergy Anaphylaxis Verified 03/12/22 16:02 [place] Allergy Anaphylaxis Verified 03/12/22 16:02 morphine Allergy Itching Verified 03/12/22 16:02 walnut [walnuts] Allergy Angioedema Verified 03/12/22 16:02 Family History (Updated 03/12/22 @ 19:[address] Xavi Almendarez DO) Mother COPD (chronic obstructive pulmonary disease) Heart disease Surgical History (Updated 03/12/22 @ 19:[address] Xavi Almendarez DO) H/O arterial bypass of lower limb History of partial mastectomy of left breast Previous back surgery Social History (Updated 03/12/22 @ 19:[address] Xavi Almendarez, DO) Smoking Status: Former smoker how long ago did patient quit smokin alcohol intake: current alcohol intake frequency: other details: rare Physical Exam Const alert and oriented x3 HEENT normocephalic Eyes no scleral icterus Resp Auscultation: wheezes expiratory wheezes (Bilateral) Cardio regular rate Extremity no pedal edema Psych mental status grossly normal Risk Stratification Risk Stratification Applicable: No Charges/Coding Visit Charges Inpatient E&M: 57314 Init Hosp L2 Objective Data Vital Signs: Vital Signs Temp Pulse Resp BP Pulse Ox O2 Del Method O2 Flow Rate 98.5 F 98 20 H 111/69 98 Nasal Cannula 2 03/13/22 13:40 03/13/22 14:34 03/13/22 14:34 03/13/22 13:40 03/13/22 13:40 03/13/22 13:40 03/13/22 13:40 Oxygen Flow Rate (L/min) 2 Oxygen Delivery Method Nasal Cannula Weight: 93 lb 14.671 oz Body Mass Index (BMI) 18.3 Intake & Output: Intake and Output for Last 24 Hours 03/11/22 03/12/22 03/13/22 23:59 23:59 23:59 Intake Total 126.52 / 126.52 Balance 126.52 / 126.52 Lab / Micro Data Result Diagrams: 03/13/22 04:25 03/13/22 04:15 Labs: Laboratory Results - last 24 hr 03/12/22 16:25: WBC 18.6 H, RBC 4.15 L, Hgb 10.9 L, Hct 36.1 L, MCV 87.0, MCH 26.3 L, MCHC 30.2 L, RDW Std Deviation 42.7, RDW Coeff of [place]aley 13.6, Plt Count 223, MPV 9.4, Immature Gran % (Auto) 0.900, Neut % (Auto) 88.3 H, Lymph % (Auto) 5.1 L, [place] % (Auto) 5.3, Eos % (Auto) 0.2, Baso % (Auto) 0.2, Absolute Neuts (auto) 16.4 H, Absolute Lymphs (auto) 0.95, Nucleated RBC % 0 03/12/22 16:25: Sodium 140, Potassium 3.4 L, Chloride 103, Carbon Dioxide 29.0, Anion Gap 8, BUN 17, Creatinine 0.53 L, Estim Creat Clear Calc 34.60, Est GFR (MDRD) Af Amer 146, Est GFR (MDRD) Non-Af 120, BUN/Creatinine Ratio 32.3 H, Glucose 119 H, Calcium 9.2, Troponin I High Sens 412 H* 03/12/22 18:40: Troponin I High Sens 755 H* 03/12/22 21:48: Magnesium 1.8, Troponin I High Sens 908 H* 03/12/22 21:48: PT 15.7 H, INR 1.3, APTT 34.0 03/13/22 03:23: Urine Color Yellow, Urine Clarity Sl. Cloudy, Urine pH 6.0, Ur Specific [place] 1.015, Urine Protein 30 H, Urine Glucose (UA) Normal, Urine Ketones 15 H, Urine Occult Blood 25 H, Urine Nitrite Positive H, Urine Bilirubin Negative, Urine Urobilinogen Normal, Ur Leukocyte Esterase 25 H, Urine RBC 0 SEEN, Urine WBC 0-5 SEEN, Ur Squamous Epith Cells 0-5 SEEN, Urine Bacteria 4+, Urine Mucus 0 SEEN 03/13/22 04:15: Sodium 140, Potassium 4.7, Chloride 105, Carbon Dioxide 29.0, Anion Gap 6, BUN 13, Creatinine 0.44 L, Estim Creat Clear Calc 33.19, Est GFR (MDRD) Af Amer 180, Est GFR (MDRD) Non-Af 149, BUN/Creatinine Ratio 29.6 H, Glucose 165 H, Calcium 9.2, Magnesium 2.0, Triglycerides 51, Cholesterol 188, LDL Cholesterol 83, VLDL Cholesterol 10, HDL Cholesterol 95 03/13/22 04:25: WBC 13.3 H, RBC 4.14 L, Hgb 10.7 L, Hct 35.5 L, MCV 85.7, MCH 25.8 L, MCHC 30.1 L, RDW Std Deviation 42.8, RDW Coeff of [place] 13.7, Plt Count 204, MPV 9.6, Immature Gran % (Auto) 0.500, Neut % (Auto) 90.2 H, Lymph % (Auto) 5.3 L, [place] % (Auto) 3.8, Eos % (Auto) 0.0, Baso % (Auto) 0.2, Absolute Neuts (auto) 12.0 H, Absolute Lymphs (auto) 0.70 L, Nucleated RBC % 0 03/13/22 04:25: APTT 128.5 H* 03/13/22 13:20: APTT 36.4 H Cardiology Labs/Tests 03/12/22 16:25: WBC 18.6 H, RBC 4.15 L, Hgb 10.9 L, Hct 36.1 L, MCV 87.0, MCH 26.3 L, MCHC 30.2 L, Plt Count 223, MPV 9.4, Immature Gran % (Auto) 0.900, Neut % (Auto) 88.3 H, Lymph % (Auto) 5.1 L, [place] % (Auto) 5.3, Eos % (Auto) 0.2, Baso % (Auto) 0.2, Absolute Neuts (auto) 16.4 H, Nucleated RBC % 0 03/12/22 16:25: Sodium 140, Potassium 3.4 L, Chloride 103, Carbon Dioxide 29.0, Anion Gap 8, BUN 17, Creatinine 0.53 L, Est GFR (MDRD) Af Amer 146, Est GFR (MDRD) Non-Af 120, BUN/Creatinine Ratio 32.3 H, Glucose 119 H, Calcium 9.2 03/12/22 21:48: Magnesium 1.8 03/12/22 21:48: PT 15.7 H, INR 1.3, APTT 34.0 03/13/22 03:23: Urine Color Yellow, Urine Clarity Sl. Cloudy, Urine pH 6.0, Ur Specific [place] 1.015, Urine Protein 30 H, Urine Glucose (UA) Normal, Urine Ketones 15 H, Urine Occult Blood 25 H, Urine Nitrite Positive H, Urine Bilirubin Negative, Urine Urobilinogen Normal, Ur Leukocyte Esterase 25 H, Urine RBC 0 SEEN, Urine WBC 0-5 SEEN 03/13/22 04:15: Sodium 140, Potassium 4.7, Chloride 105, Carbon Dioxide 29.0, Anion Gap 6, BUN 13, Creatinine 0.44 L, Est GFR (MDRD) Af Amer 180, Est GFR (MDRD) Non-Af 149, BUN/Creatinine Ratio 29.6 H, Glucose 165 H, Calcium 9.2, Magnesium 2.0, Triglycerides 51, Cholesterol 188, LDL Cholesterol 83, VLDL Cholesterol 10, HDL Cholesterol 95 03/13/22 04:25: WBC 13.3 H, RBC 4.14 L, Hgb 10.7 L, Hct 35.5 L, MCV 85.7, MCH 25.8 L, MCHC 30.1 L, Plt Count 204, MPV 9.6, Immature Gran % (Auto) 0.500, Neut % (Auto) 90.2 H, Lymph % (Auto) 5.3 L, [place] % (Auto) 3.8, Eos % (Auto) 0.0, Baso % (Auto) 0.2, Absolute Neuts (auto) 12.0 H, Nucleated RBC % 0 03/13/22 04:25: APTT 128.5 H* 03/13/22 13:20: APTT 36.4 H Rhythm: EKG: ECHO: Stress Test: Cardiac Cath: PCI: CT Surgery: Holter monitor: EPS: PPM: CXR: Chest CT Scan: Radiography Diagnostic Testing: Radiology Impression Brain CT 03/12/22 16:14 IMPRESSION: 1. 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 2. No mass, hemorrhage, or acute territorial infarct. 3. No intracranial evidence of acute traumatic injury. 4. No cranial facial fracture noted. 5. Chronic appearing sinus disease. 6. No intracranial mass, hemorrhage or acute territorial infarct. 7. 8. No radiographically significant sinus disease.. Electronically Signed: Zurdo Modi MD at 17:33 EDT , Lumbar Spine X-Ray 03/12/22 16:14 IMPRESSION: 1. Postoperative changes with pedicle screw posterior fixation and interbody fusion at L3-L5. 2. No evidence of fractures or hardware failure. 3. Levoscoliotic curvature is however noted. Electronically Signed: Zurdo Modi MD at 18:43 EDT , Sacrum and Coccyx X-Ray 03/12/22 16:14 IMPRESSION: Unremarkable sacro-coccygeal spine. Electronically Signed: Zurdo Modi MD at 18:44 EDT , Cervical Spine X-Ray 03/12/22 16:17 IMPRESSION: 1. No evidence of fracture, limited visualization of the cervical spine on lateral view however. There is a grade 1 degenerative anterolisthesis of C4 on C5. 2. No fracture destructive bony process involving the visualized cervical spine. 3. Moderate facet arthropathy noted. Electronically Signed: Zurdo Modi MD at 18:39 EDT , Chest X-Ray 03/12/22 17:00 IMPRESSION: 1. Diffuse interstitial prominence at the lung bases. Mild interstitial infiltrate versus atelectasis are considerations. 2. No consolidation, effusion or pneumothorax. 3. No acute bony changes. Electronically Signed: Zurdo Modi MD at 18:41 EDT ,
--- NOTE | 2022-03-13 16:14 | CT_ITS ---
STUDY: CTA CHEST REASON FOR EXAM: Female, 76 years old. Elevated troponin RADIATION DOSAGE (If Supplied By Facility): CTDIvol = ( 8.09 ) mGy, DLP = ( 142.09 ) mGycm TECHNIQUE: The examination was performed with the intravenous administration of IV 75mL Isovue-370. Post-processing of the angiographic images was performed, with multiplanar reformation and 3D reconstruction. Individualized dose optimization techniques were used for this CT. COMPARISON: None. FINDINGS: Normal enhancement of the main pulmonary artery and right and left pulmonary arteries. Normal enhancement of the bilateral peripheral pulmonary arteries. There is no demonstrated pulmonary embolism. Normal thoracic aorta and visualized great vessels. There is no demonstrated aortic dissection. Normal heart and pericardium. There are calcifications of the coronary arteries. Normal mediastinum. Normal hilar regions. Normal visualized trachea and bronchi. The lungs are well expanded. Moderate emphysema. Right lower lobe discoid atelectasis. No noncalcified nodule or mass Normal pleura. Normal chest wall structures. Normal osseous structures. Normal visualized upper abdomen. CT/CTA Chest W/WO Contrast IMPRESSION: Normal CTA chest examination, without a demonstrated pulmonary embolism or arterial dissection. Electronically Signed: Zurdo Joyner MD at 17:12 EDT ,
--- NOTE | 2022-03-13 19:06 | NURSING ---
Charting reviewed with Constantine Cabrera RN
[2022-03-13 21:11] LABS: Partial Thromboplast Time 74.7 Seconds (24.1-36.2)
[2022-03-13] MEDS: Gabapentin 300 MG Capsule PO (21:18)
[2022-03-13] MEDS: Atorvastatin Calcium 40 MG Tablet PO (21:18)
[2022-03-13] MEDS: traMADol 50 MG Tablet PO (21:19)
[2022-03-13] MEDS: Loratadine 10 MG Tablet 5 MG PO (22:26)
[2022-03-14] VITALS (22 sets, daily range): BP systolic 121–162; BP diastolic 64–77; PULSE 83–100; RESP 16–20; TEMP 36.3–36.9; O2SAT 92–98
[2022-03-14] MEDS: tiZANidine HCl 2 MG Tablet PO ×2 (00:13→21:07)
[2022-03-14] MEDS: oxyCODONE 5 MG Tablet PO ×4 (00:22→19:43)
[2022-03-14] MEDS: Ipratropium/Albuterol Sulfate 3 ML AMPUL.NEB INHALATION ×6 (03:15→23:38)
[2022-03-14 03:21] LABS: Partial Thromboplast Time 57.8 Seconds (24.1-36.2)
[2022-03-14] MEDS: Levothyroxine 100 MCG Tablet PO (06:04)
[2022-03-14] MEDS: Acetaminophen 500 MG Tablet 1000 MG PO ×3 (06:04→21:06)
[2022-03-14] MEDS: 0.9% Saline Lock 10 ML Syringe IV ×2 (06:04→14:46)
[2022-03-14] MEDS: buPROPion (XL) 150 MG TABLET.XL PO (08:15)
[2022-03-14] MEDS: Isosorbide Mononitrate 30 MG Tablet PO (08:15)
[2022-03-14] MEDS: Sertraline 50 MG Tablet PO (08:15)
[2022-03-14] MEDS: Aspirin 81 MG TAB.CHEW PO (08:15)
[2022-03-14] MEDS: Pantoprazole Sodium 40 MG Tablet PO (08:15)
[2022-03-14] MEDS: Carvedilol 3.125 MG TABLET PO ×2 (08:16→21:10)
[2022-03-14] MEDS: Furosemide 20 MG Tablet PO (08:16)
[2022-03-14] MEDS: Loratadine 10 MG Tablet 5 MG PO (08:16)
[2022-03-14] MEDS: SACUBITRIL/VALSARTAN 24/26 MG TABLET 1 EACH PO ×2 (08:16→21:09)
[2022-03-14] MEDS: Clopidogrel Bisulfate 75 MG Tablet PO (08:16)
[2022-03-14] MEDS: Fluticasone 0.05% 1 SPRAY NASAL.SRY NASAL ×2 (08:17→21:08)
--- NOTE | 2022-03-14 09:19 | PN.CARD_ITS ---
Subjective Subjective The patient is awake and alert. She states that she is feeling better overall including her breathing. She denies any ongoing chest discomfort at this time. Objective Data Vital Signs: Vital Signs Temp Pulse Resp BP Pulse Ox O2 Del Method O2 Flow Rate 97.3 F L 92 16 162/77 H 96 Nasal Cannula 2 03/14/22 07:57 03/14/22 07:57 03/14/22 07:57 03/14/22 07:57 03/14/22 07:57 03/14/22 07:57 03/14/22 07:57 Oxygen Flow Rate (L/min) 2 Oxygen Delivery Method Nasal Cannula Weight: 93 lb 14.671 oz Body Mass Index (BMI) 18.3 Intake & Output: Intake and Output for Last 24 Hours 03/12/22 03/13/22 03/14/22 23:59 23:59 23:59 Intake Total 726.52 / 726.52 106.8 / 106.8 Balance 726.52 / 726.52 106.8 / 106.8 Lab / Micro Data Result Diagrams: 03/13/22 04:25 03/13/22 04:15 Labs: Laboratory Results - last 24 hr 03/13/22 13:20: APTT 36.4 H 03/13/22 20:37: APTT 74.7 H 03/14/22 02:50: APTT 57.8 H Micro: Microbiology 03/13/22 14:36 Mucosa - Nasopharyngeal Respiratory Panel (PCR) - Final Cardiology Labs/Tests 03/13/22 13:20: APTT 36.4 H 03/13/22 20:37: APTT 74.7 H 03/14/22 02:50: APTT 57.8 H Rhythm: Sinus rhythm Cardiac Cath: 02-06-2021: [place], [place] Left main: Minor luminal irregularities LAD: Minor luminal irregularities LCx: No evidence of disease OM 1/2: Minor luminal irregularities RCA: Minor luminal irregularities LV: Regional wall motion abnormalities: LVEF 30 to 35%: Compatible with Takotsubo cardiomyopathy Radiography Diagnostic Testing: Radiology Impression Chest CTA 03/13/22 16:14 IMPRESSION: Normal CTA chest examination, without a demonstrated pulmonary embolism or arterial dissection. Electronically Signed: Zurdo Joyner MD at 17:12 EDT , Physical Exam Const alert, oriented x3 and no apparent distress Orientation / Consciousness: awake HEENT normocephalic, head/scalp atraumatic and hearing grossly normal bilaterally Eyes PERRL, EOMs intact bilaterally, conjunctivae normal and no scleral icterus Neck full ROM and no JVD Carotids: normal carotid upstroke Chest inspection of chest normal Resp normal respiratory effort Auscultation: diminished lung sounds diffuse Cardio regular rate, regular rhythm, S1 normal heart sound and S2 normal heart sound Extremity no pedal edema Skin no rashes or lesions noted Psych mental status grossly normal Assessment & Plan Assessment/Plan (1) Elevated troponin: PLAN: The patient presented with elevated troponins. She underwent cardiovascular consultation as noted. Based upon the patient's clinical course and objective findings, at the present time, it appears that the elevated troponin I levels is thought to be related to a non-STEMI type II related to her underlying noncardiovascular conditions superimposed upon her cardiovascular history. At the moment she is continuing medical management. She is undergoing further evaluation with a transthoracic echocardiogram to reassess her left ventricular wall motion, systolic function, LVEF, for any obvious recurrence of a Takotsubo syndrome/cardiomyopathy. (2) CAD (coronary artery disease): PLAN: The patient did undergo diagnostic cardiac catheterization at [facility] on 02-06-2021. The results are as noted. It appears at that time she had no angiographically significant appearing CAD. Based upon their report it was felt that at that time she experienced a Takotsubo syndrome/cardiomyopathy. The patient will continue noninvasive valuation as noted above. (3) COPD exacerbation: PLAN: The patient is thought to have an underlying COPD exacerbation. She does state that she wears her O2 nasal cannula [id number] at home. She is undergoing evaluation care by internal medicine. She states that she feels better with her breathing at this time. Addt'l Comments Overall, at the present time, the patient will continue cold management. Her transthoracic echocardiogram will be performed/reviewed. She will also continue her noncardiac evaluation. Eventually she will need to follow-up with her primary care physicians, cardi ovascular team, and pulmonology team that cares for her in the [facility]. This note was generated using a voice recognition system and there may be incorrect words, spelling or punctuation that were not noted when reviewing the office note prior to saving. Procedure Criteria Type of Procedure Procedure Type: Elective Elective Risks - COVID COVID Risk Discussion: The surgeon/proceduralist and patient have discussed in detail the risk of exposure to and/or potential harm posed by the COVID-19 virus with having a surgery/procedure at this time versus the risk of delaying the surgery/procedure. It is not possible to know either the risk of delaying the surgery or procedure or chance of getting an infection with perfect accuracy, but a joint decision was made between the patient and the surgeon/proceduralist to proceed at this time with the scheduled surgery/procedure as indicated on the consent form.
[2022-03-14] MEDS: Ceftriaxone 1 GM/50 ML BAG IV (09:55)
--- NOTE | 2022-03-14 10:15 | CASEMGMT ---
RN BELIA Face to Face with patient for initial transition planning/care coordination assessment. RN CM introduced self and role at [facility]. Patient lying in bed, alert and oriented. Patient willing to participate in assessment and is able to answer all questions appropriately. Care providers, pharmacy, and demographics verified. Patient wishes to discharge home and would like HHC at discharge. CM to provide patient list of agencies. Patient states she has no further needs or concerns at this time. CM to follow for discharge planning needs that may arise. PCP: [place] Specialists: Tereso animal surgeon Amelia Jose; Roger crystal report developer Preferred Pharmacy: [facility] Insurance: [facility], [employer] choice Prescription Benefit: yes Living Will/HPOA: yes, daughter Kaylee Izquierdo LNOK: daughter Living Arrangements: Patient lives alone in a single story home with 3 steps and railing to enter the home. Patient states she is independent at home. Patient was visiting daughter in [place]. Transportation: self, daughter, son in law DME/HHC: Patient states she has shower chair, raised toilet, rollator, nebulizer, pulse ox, and home oxygen at 2lpm through [facility] with portable concentrator. Patient states POC is with daughter and able to bring to hospital for patient as discharge. Disposition Plan: Patient to discharge home with HHC, family support, and follow-up plans in place. Kary LIANG, RN, CM
[2022-03-14] MEDS: Calcium Carbonate 500 MG Tablet PO (10:58)
--- NOTE | 2022-03-14 11:07 | CASEMGMT ---
Addendum entered by Kary Paris 03/14/22 15:03: Pt states would like [facility] or [facility]. Referral sent via [facility] to both [facility] and [facility]. CM to follow. Alo BLAS CM Original Note: Per Brock BLAS CM, pt would like [facility] at discharge. This RN CM to room and pt provided a list of C providers including quality and resource use data and consistent with the pt's preferred geographic region, medical needs, and insurance network. CM to follow for pt choice. Alo BLAS CM
--- NOTE | 2022-03-14 12:56 | CASEMGMT ---
Patient has a Healthcare Power of Flume Worker and a Healthcare Living Will. Patient is aware they are not on file at [facility] and will try to bring in a copy. Patient's Healthcare Power of Flume Worker is her daughter Kaylee Lamb. Angle De Guzman COUNT ROOM CLERK [place]
--- NOTE | 2022-03-14 13:04 | CT_ITS ---
STUDY: CT ABDOMEN WITH CONTRAST REASON FOR EXAM: Female, 76 years old. IVC mobile echodensity on echocardiogram today. RADIATION DOSAGE (If Supplied By Facility): CTDIvol = ( 5.44 ) mGy, DLP = ( 323.87 ) mGycm TECHNIQUE: Transaxial images were obtained post I.V. administration of IV 100mL Isovue-300, and oral contrast. Sagittal and coronal images were reconstructed. Individualized dose optimization techniques were used for this CT. COMPARISON: None. FINDINGS: Mild increased markings at the lung bases suggestive of scarring and atelectasis. Coronary artery calcification. Subcentimeters cysts are seen in the right lobe of the liver as well as in the left lobe. The patient status post cholecystectomy. Normal spleen. Normal pancreas. Normal bilateral adrenal glands. Normal right kidney. There is a 2.4 cm cyst in the upper medial pole of the left kidney. Normal visualized stomach. Normal small intestine. Moderate amount of fecal material is seen in the colon. The appendix is visualized and appears normal. There is diffuse atherosclerotic calcification of the abdominal aorta, without a demonstrated aneurysm. Normal inferior vena cava. Normal retroperitoneum. Normal abdominal wall. There are diffuse degenerative changes of the visualized lumbar spine. Prior laminectomy and fusion at the L3-L4 and L4-L5 levels. CT/Abdomen WITH IV Contrast IMPRESSION: The IVC is unremarkable. Small left renal cyst. Electronically Signed: Evgeny Chan MD at 14:35 EDT ,
--- NOTE | 2022-03-14 13:14 | PCM.PN.HOSP ---
Subjective Subjective DOS: 03-14-2022 CC: Shortness of breath Ms. Martinez this morning reports improving shortness of breath and is back on 2 L of O2.m Cough is improving. Does have right arm that has a baseline tremor which is present but reports that this is typical. Eating well, briefly had to clear her throat when eating this morning due to being surprised when she was eating. Does endorse that her knee hurts. Denies chest pain or palpitations. Reported burning on urination on admission but this is resolved. Objective Data Objective Data Vital Signs: Vital Signs Temp Pulse Resp BP Pulse Ox O2 Del Method O2 Flow Rate 97.3 F L 86 20 H 162/77 H 96 Nasal Cannula 2 03/14/22 10:00 03/14/22 11:01 03/14/22 11:01 03/14/22 10:00 03/14/22 10:00 03/14/22 10:00 03/14/22 10:00 Oxygen Flow Rate (L/min) 2 Oxygen Delivery Method Nasal Cannula Weight: 42.6 kg Body Mass Index (BMI) 18.3 Intake & Output: Intake and Output for Last 24 Hours 03/12/22 03/13/22 03/14/22 23:59 23:59 23:59 Intake Total 726.52 / 726.52 156.8 / 156.8 Balance 726.52 / 726.52 156.8 / 156.8 Medical Nutrition Assessment Dietitian: Malnutrition Criteria Met Start: 03/13/22 12:30 Freq: Status: Active Protocol: Document 03/13/22 12:30 (Rec: 03/13/22 12:30 [id number]) Nutrition Malnutrition Evidence of Malnutrition Exists Yes Malnutrition (moderate): Chronic Evidenced By Suboptimal Energy Intake ( Moderate),Physical Changes ( Moderate) Clinical Problem Chronic Disease or Condition Related Malnutrition Etiology moderate, chronic malnutrition related to inadequate energy intake Signs/Symptoms as evidenced by estimated PO intake meeting <75% of estimated energy needs >1 month; moderate muscle wasting /fat loss evident per physical exam in orbital, temporal, clavicle, and acromion areas; BMI 18.3 Status Active Problem Recommendation Dietitian Recommendations/Changes continue cardiac diet as ordered; will consider liberalizing diet if PO intake worsens; will increase ensure clear to 120mL 4x/day w/ medpass and add 120mL ensure plus high protein TID w/ meals for additional calories/ protein if consumed. Lab / Micro Data Result Diagrams: 03/13/22 04:25 03/13/22 04:15 Labs: Laboratory Results - last 24 hr 03/13/22 13:20: APTT 36.4 H 03/13/22 20:37: APTT 74.7 H 03/14/22 02:50: APTT 57.8 H Micro: Microbiology 03/13/22 03:23 Urine, Clean Catch Urine Culture - Preliminary GNR lactose cereal miller 03/13/22 14:36 Mucosa - Nasopharyngeal Respiratory Panel (PCR) - Final Radiography Diagnostic Testing: Radiology Impression Echocardiogram 03/12/22 19:43 Interpretation Summary Left ventricular systolic function is hyperdynamic. The estimated ejection fraction is 75 %. Trivial mitral valve insufficiency. Mild tricuspid valve insufficiency. Mild focal aortic valve calcification. Right ventricular systolic pressure estimated to be 54 mmHg c/w pulmonary hypertension. Diastolic function is indeterminate. 2D echocardiographic images of the IVC demonstrate a somewhat linear mobile echodensity of uncertain etiology. Concern for further noncardiac/radiologic evaluation of this area as clinically indicated. Ordering Physician: Xavi Almendarez Referring Physician: JAMIL PCP Performed By: Vanessa Rosas RCS Chest CTA 03/13/22 16:14 IMPRESSION: Normal CTA chest examination, without a demonstrated pulmonary embolism or arterial dissection. Electronically Signed: Zurdo Joyner MD at 17:12 EDT , Physical Exam Narrative Physical exam: General: Alert, Oriented x3, Cooperative, appears very frail HEENT: Atraumatic Oral: Moist Mucosa Neck: Supple Lungs:Diminished to auscultation Cardiovascular: HS I+II, regular, no murmurs Abdomen: Bowel Sounds Present, Soft, Non Tender Extremities: No edema Skin: No rashes, No breakdown Neurological: Grossly intact Psych/Mental Status: Appropriate Const alert and no apparent distress Constitutional Narrative: Oriented HEENT normocephalic and head/scalp atraumatic Eyes Eyes Narrative: EOM grossly intact, anicteric Neck supple Neck Narrative: Positive JVD. No thyromegaly. Resp Resp Narrative: Scattered wheezes Cardio regular rate and regular rhythm GI soft to palpation, non-tender and non-distended Extremity Extremity Narrative: No edema appreciated Neuro moves all extremities Neuro Narrative: No overt focal deficits appreciated Psych affect normal Psych Narrative: Cooperative Assessment & Plan Assessment/Plan (1) Acute and chronic respiratory failure with hypoxia: (2) Non-STEMI (non-ST elevated myocardial infarction): (3) COPD exacerbation: PLAN: Plan 1.Acute COPD exacerbation in a patient with chronic hypoxic respiratory failure, on 2 L of oxygen Respiratory panel is negative Chest x-ray shows diffuse interstitial prominence of the lung bases, mild interstitial infiltrate versus atelectasis Continue with breathing treatment, IV steroids, encourage use of incentive spirometer Wean off oxygen for SPO2 more than 94%, presently on 2 L and is improving 2. Acute non-STEMI, most likely type II Cardiology evaluated, no further work-up inpatient Last heart cath in 2020 without need for intervention, diagnosed with Takotsubo Heparin drip held Continue on Coreg, aspirin, Plavix, atorvastatin, isosorbide, Entresto 2D echo reported EF of 75%, right ventricular systolic pressure estimated to be 54 and additionally noted a somewhat linear mobile echodensity of uncertain etiology Appreciate cardiology recommendations #Somewhat mobile density in the IVC Seen on echocardiogram read by Dr. Guevara With etiology, will order CT abdomen with IV contrast to further evaluate 3. Acute UTI Urine culture growing gram-negative rods, lactose cereal miller Continue Rocephin and await sensitivities 4. Recent falls/chronic pain syndrome, Brain CT is unremarkable Lumbar spine x-ray shows postoperative changes with pedicle screw posterior fixation interbody fusion at L3-L5 Sacral and coccygeal x-ray unremarkable CT of the spine is also unremarkable Continue on gabapentin, scheduled Tylenol PT and OT with recommendation for home health 5. Malnutrition, moderate, chronic, continue on supplements 6. Hypothyroidism, continue on Synthroid 7. Depression, continue Zoloft, bupropion 8. DVT Prophylaxis?Heparin drip discontinued, will start Lovenox prophylaxis Charges/Coding Visit Charges Inpatient E&M: 17632 Subs Hosp L2
--- NOTE | 2022-03-14 14:46 | CHAPLAIN ---
Type of Pastoral Visit _x__ Initial Visit ___ Follow-up Visit ___ On-call Visit ___ General Patient Visit ___ Spiritual Assessment ___ Family Conference ___ Bereavement ___ Rapid Response ___ Code Blue ___ Other (describe below) Pastoral Care Referral From _x__ Patient ___ Family ___ Nurse ___ Physician ___ Product Safety Associate ___ Newspaper Library Manager ___ Other (describe below) Sacrament/Intervention _x__ Active listening ___ Anointing ___ Spiritism ___ Bereavement ___ Communion ___ Marissa exploration ___ ___ Life review ___ Prayer ___ Reconciliation ___ Sacrament of Sick _x__ Supportive presence ___ Wedding ___ Other (describe below) Pastoral Comments patient explained her reason for being in this hospital and that she had been visiting family; pt stated that she is hopeful to go home but also aware to be cautious; pt would welcome prayers as she is now being taken to [place]
--- NOTE | 2022-03-14 19:53 | NURSING ---
Charting reviewed with Constantine Cabrera RN
[2022-03-14] MEDS: MELATONIN 10 MG TABLET PO (21:08)
[2022-03-14] MEDS: Gabapentin 300 MG Capsule PO (21:08)
[2022-03-14] MEDS: Atorvastatin Calcium 40 MG Tablet PO (21:10)
[2022-03-15] VITALS (10 sets, daily range): BP systolic 129–173; BP diastolic 69–79; PULSE 87–96; RESP 14–20; TEMP 36.7–36.8; O2SAT 96–98
[2022-03-15] MEDS: Acetaminophen 500 MG Tablet 1000 MG PO (05:16)
[2022-03-15] MEDS: Levothyroxine 100 MCG Tablet PO (05:16)
[2022-03-15 06:08] LABS: Absolute Lymphocyte Count 0.94 X10^3/uL (0.83-4.51); Absolute Neutrophil Count 10.1 X10^3/uL (2.0-7.7); Basophil# 0.01 X10^3/uL; Basophil% 0.1 % (0-1); Hematocrit 33.3 % (37-47); Hemoglobin 10.5 g/dL (12.0-15.0); Lymphocyte # 0.94 X10^3/ul (0.83-4.51); Lymphocyte % 7.5 % (19-41); Mean Corp Hgb Conc 31.5 g/dL (32-36); Mean Corpuscular Hgb 26.4 pg (27.0-32.0); Mean Corpuscular Volume 83.9 fL (81-99); Mean Platelet Vol. 9.6 fl (6.2-12.0); Monocyte# 1.42 X10^3/uL; Monocyte% 11.3 % (0-10); NRBC Flagged by Analyzer 0 % (0-5); Neutrophil % 80.3 % (47-70); Platelet Count 230 K/mm3 (150-450); RBC Distribution Width CV 14.1 % (11.6-14.6); RBC Distribution Width SD 43.6 fl (35.1-43.9); Red Blood Count 3.97 M/mm3 (4.2-5.4); White Blood Count 12.6 K/mm3 (4.4-11.0)
[2022-03-15] MEDS: Isosorbide Mononitrate 30 MG Tablet PO (06:51)
[2022-03-15] MEDS: oxyCODONE 5 MG Tablet PO (06:54)
[2022-03-15] MEDS: SACUBITRIL/VALSARTAN 24/26 MG TABLET 1 EACH PO (06:55)
[2022-03-15 07:02] LABS: AST(SGOT) 18 U/L (15-37); Alanine Aminotransfer ALT/SGPT 24 U/L (13-56); Albumin, Serum 3.2 g/dL (3.2-5.0); Alkaline Phosphatase 67 U/L (45-117); Anion Gap 7 (5-15); BUN 17 mg/dL (7-18); BUN/Creat Ratio 47.2 RATIO (10-20); Calcium,Total 9.2 mg/dL (8.5-10.1); Chloride 106 mmol/L (98-107); Creatinine, Serum 0.36 mg/dL (0.55-1.02); EST Glomerular Filtration Rate 187 mL/min (>60); Est Glom Filt Rate - Afr Amer 226 mL/min (>60); Estimated Creatinine Clearance 33.19 ml/min; Globulin 3.2 g/dL (2.2-4.2); Glucose 113 mg/dL (74-106); Potassium 3.7 mmol/L (3.5-5.1); Protein, Total 6.4 g/dL (6.4-8.2); Sodium Level 141 mmol/L (136-145)
[2022-03-15] MEDS: Ipratropium/Albuterol Sulfate 3 ML AMPUL.NEB INHALATION ×2 (07:05→10:56)
--- NOTE | 2022-03-15 07:24 | DCINST_ITS ---
Discharge Instructions Diet Discharge Diet: 2000 mg Sodium Diet Activity Discharge Activity: Return to Normal Activity Follow Up Care Test Results: Test results from this visit will be discussed in further detail at your follow- up appointment, if applicable. Discharge Plan Admission Admit Date/Time: 03/12/22 18:55 Primary Reason for Your Visit: Shortness of breath Attending Provider: Jannette Crawford Primary Care Provider: Ivana Lincoln Consulting Providers: Xavi Almendarez ; Dong Nova ; Magdalena Lion Instructions Patient Instructions: Shortness of Breath Coping, ED Dyspnea Additional Instructions / Restrictions: *Please take this with you to your next doctors appointment* -You were found to have a urinary tract infection and you are given 3 days of antibiotics in the hospital, you will need 4 more days. Augmentin will be sent to your preferred pharmacy on file -You were started on steroids for your breathing, today is your third day of steroids, please take a dose of prednisone today followed by 2 more days of prednisone - Continue home inhalers -Continue your home pain medications, please follow-up with your pain management doctor on discharge -Due to your continued pain lidocaine patches were sent to your preferred pharmacy on file which is listed as [facility], [address] [place] -It was indicated on your home medication list that you take bupropion 150 mg twice daily, please take first dose in the morning and the second dose no later than 6 PM -Your blood pressure remained high during admission, your carvedilol was increased to 6.25 twice daily on the day of discharge. Please monitor your blo od pressure as an outpatient and discuss this with your primary care physician at your follow-up appointment -Please follow with your heart doctor upon discharge -Please follow with your lung doctor upon discharge. -Please call your primary care provider's office upon discharge to schedule a hospital follow up within 1 week. -For any concerning signs or symptoms please call 911 or proceed to the nearest emergency department Discharge Orders/Prescriptions Prescriptions: New lidocaine 5 % Adhesive Patch,Medicated 1 patch topical DAILY 14 Days Qty: 30 0RF Protocol: *Topical Application Instructions APPLICATION INSTRUCTIONS: put patch on for 12 hours and remove for 12 hours prednisone 20 mg tablet 40 mg PO DAILY 3 Days Qty: 6 0RF amoxicillin-pot clavulanate [Augmentin] 500-125 mg tablet 1 tab PO BID 4 Days Qty: 8 0RF Continued atorvastatin 40 mg tablet 40 mg PO QHS tizanidine 2 mg tablet 2 mg PO TID PRN (Reason: Muscle Spasm) Label Comments: TAKE 1 TABLET BY MOUTH THREE TIMES DAILY NEEDED FOR MUSCLE SPASM isosorbide mononitrate 30 mg tablet extended release 24 hr 30 mg PO DAILY Label Comments: TAKE 1 TABLET BY MOUTH EVERY MORNING clopidogrel 75 mg tablet 75 mg PO DAILY Label Comments: TAKE 1 TABLET BY MOUTH EVERY DAY tramadol 50 mg tablet 1 mg PO Q8H PRN (Reason: Pain) levothyroxine 100 mcg tablet 100 mcg PO DAILY Label Comments: TAKE 1 TABLET BY MOUTH EVERY DAY BEFORE A MEAL pantoprazole 40 mg tablet,delayed release (DR/EC) 40 mg PO DAILY Label Comments: TAKE 1 TABLET BY MOUTH EVERY DAY gabapentin 300 mg capsule 300 mg PO QHS Label Comments: TAKE 1 CAPSULE BY MOUTH AT BEDTIME furosemide 20 mg tablet 20 mg PO DAILY Label Comments: TAKE 1 TABLET BY MOUTH EVERY DAY albuterol sulfate 90 mcg/actuation HFA aerosol inhaler 2 puff INHALATION Q4H PRN (Reason: SOB) Label Comments: INHALE 2 PUFFS BY MOUTH EVERY 4 TO 6 HOURS NEEDED hydromorphone 4 mg tablet 4 mg PO BID fluticasone propionate 50 mcg/actuation spray,suspension 1 spray INTRANASAL BID Label Comments: SHAKE LIQUID AND USE 1 SPRAY IN EACH NOSTRIL TWICE DAILY sertraline 50 mg tablet 50 mg PO DAILY Label Comments: TAKE 1 TABLET BY MOUTH EVERY DAY bupropion HCl 150 mg tablet extended release 24 hr 150 mg PO BID Label Comments: TAKE 1 TABLET BY MOUTH TWICE DAILY Spiriva with HandiHaler 18 mcg capsule, w/inhalation device 1 cap INHALATION DAILY Label Comments: INHALE THE CONTENTS OF 1 CAPSULE VIA INHALATION DEVICE EVERY DAY budesonide-formoterol [Symbicort] 160-4.5 mcg/actuation HFA aerosol inhaler 2 puff INHALATION BID Label Comments: INHALE TWO PUFFS TWICE DAILY Entresto 24-26 mg tablet 1 tab PO BID Label Comments: TAKE 1 TABLET BY MOUTH TWICE DAILY Changed carvedilol 3.125 mg tablet 6.25 mg PO BID Qty: 60 0RF Label Comments: TAKE 1 TABLET BY MOUTH TWICE DAILY WITH MEALS Referrals / Follow Up: Ivana Lincoln [Other] - Within 1 Week [facility] Doctor,Out of [Non-Staff] - Disposition Disposition (needs filled in before D/C Order can be placed): Home Health Service
[2022-03-15] MEDS: Lidocaine 5% Patch 1 PATCH TOPICAL (08:00)
[2022-03-15] MEDS: buPROPion (XL) 300 MG TABLET.XL PO (08:04)
[2022-03-15] MEDS: Carvedilol 3.125 MG TABLET PO ×2 (08:04→09:43)
[2022-03-15] MEDS: Pantoprazole Sodium 40 MG Tablet PO (08:04)
[2022-03-15] MEDS: Loratadine 10 MG Tablet 5 MG PO (08:04)
[2022-03-15] MEDS: Aspirin 81 MG TAB.CHEW PO (08:04)
[2022-03-15] MEDS: Clopidogrel Bisulfate 75 MG Tablet PO (08:04)
[2022-03-15] MEDS: Sertraline 50 MG Tablet PO (08:04)
[2022-03-15] MEDS: Furosemide 20 MG Tablet PO (08:04)
[2022-03-15] MEDS: Fluticasone 0.05% 1 SPRAY NASAL.SRY NASAL (08:05)
[2022-03-15] MEDS: Enoxaparin 40 MG/0.4 ML Syringe SC (08:05)
--- NOTE | 2022-03-15 08:13 | NURSING ---
pt requesting medications be given early
--- NOTE | 2022-03-15 08:34 | PCM.PN.CARD ---
Subjective Subjective The patient denies any chest discomfort. She believes her breathing has improved overall. Objective Data Vital Signs: Vital Signs Temp Pulse Resp BP Pulse Ox O2 Del Method O2 Flow Rate 98.0 F 96 16 173/79 H 96 Nasal Cannula 2 03/15/22 08:09 03/15/22 08:09 03/15/22 08:09 03/15/22 08:09 03/15/22 08:09 03/15/22 08:14 03/15/22 08:14 Oxygen Flow Rate (L/min) 2 Oxygen Delivery Method Nasal Cannula Weight: 93 lb 14.671 oz Body Mass Index (BMI) 18.3 Intake & Output: Intake and Output for Last 24 Hours 03/13/22 03/14/22 03/15/22 23:59 23:59 23:59 Intake Total 726.52 / 726.52 996.8 / 996.8 Balance 726.52 / 726.52 996.8 / 996.8 Lab / Micro Data Result Diagrams: 03/15/22 05:46 03/15/22 05:46 Labs: Laboratory Results - last 24 hr 03/15/22 05:46: WBC 12.6 H, RBC 3.97 L, Hgb 10.5 L, Hct 33.3 L, MCV 83.9, MCH 26.4 L, MCHC 31.5 L, RDW Std Deviation 43.6, RDW Coeff of Haley 14.1, Plt Count 230, MPV 9.6, Immature Gran % (Auto) 0.800, Neut % (Auto) 80.3 H, Lymph % (Auto) 7.5 L, [place] % (Auto) 11.3 H, Eos % (Auto) 0.0, Baso % (Auto) 0.1, Absolute Neuts (auto) 10.1 H, Absolute Lymphs (auto) 0.94, Nucleated RBC % 0 03/15/22 05:46: Sodium 141, Potassium 3.7, Chloride 106, Carbon Dioxide 28.0, Anion Gap 7, BUN 17, Creatinine 0.36 L, Estim Creat Clear Calc 33.19, Est GFR (MDRD) Af Amer 226, Est GFR (MDRD) Non-Af 187, BUN/Creatinine Ratio 47.2 H, Glucose 113 H, Calcium 9.2, Total Bilirubin 0.30, AST 18, ALT 24, Alkaline Phosphatase 67, Total Protein 6.4, Albumin 3.2, Globulin 3.2, Albumin/Globulin Ratio 1.0 Micro: Microbiology 03/13/22 03:23 Urine, Clean Catch Urine Culture - Final Escherichia coli Cardiology Labs/Tests 03/15/22 05:46: WBC 12.6 H, RBC 3.97 L, Hgb 10.5 L, Hct 33.3 L, MCV 83.9, MCH 26.4 L, MCHC 31.5 L, Plt Count 230, MPV 9.6, Immature Gran % (Auto) 0.800, Neut % (Auto) 80.3 H, Lymph % (Auto) 7.5 L, [place] % (Auto) 11.3 H, Eos % (Auto) 0.0, Baso % (Auto) 0.1, Absolute Neuts (auto) 10.1 H, Nucleated RBC % 0 03/15/22 05:46: Sodium 141, Potassium 3.7, Chloride 106, Carbon Dioxide 28.0, Anion Gap 7, BUN 17, Creatinine 0.36 L, Est GFR (MDRD) Af Amer 226, Est GFR (MDRD) Non-Af 187, BUN/Creatinine Ratio 47.2 H, Glucose 113 H, Calcium 9.2, Total Bilirubin 0.30 Rhythm: Sinus rhythm Radiography Diagnostic Testing: Radiology Impression Echocardiogram 03/12/22 19:43 Interpretation Summary Left ventricular systolic function is hyperdynamic. The estimated ejection fraction is 75 %. Trivial mitral valve insufficiency. Mild tricuspid valve insufficiency. Mild focal aortic valve calcification. Right ventricular systolic pressure estimated to be 54 mmHg c/w pulmonary hypertension. Diastolic function is indeterminate. 2D echocardiographic images of the IVC demonstrate a somewhat linear mobile echodensity of uncertain etiology. Concern for further noncardiac/radiologic evaluation of this area as clinically indicated. Ordering Physician: Xavi Almendarez Referring Physician: NO PCP Performed By: Vanessa Rosas RCS Abdomen CT 03/14/22 13:04 IMPRESSION: The IVC is unremarkable. Small left renal cyst. Electronically Signed: Evgeny Chan MD at 14:35 EDT , Physical Exam Const alert, oriented x3 and no apparent distress Orientation / Consciousness: awake HEENT normocephalic, head/scalp atraumatic and hearing grossly normal bilaterally Eyes PERRL, EOMs intact bilaterally, conjunctivae normal and no scleral icterus Neck full ROM and no JVD Carotids: normal carotid upstroke Chest inspection of chest normal Resp normal respiratory effort Auscultation: diminished lung sounds diffuse Cardio regular rate, regular rhythm, S1 normal heart sound and S2 normal heart sound Extremity no pedal edema Skin no rashes or lesions noted Psych mental status grossly normal Assessment & Plan Assessment/Plan (1) Elevated troponin: PLAN: The patient presented with elevated troponins. She underwent cardiovascular consultation as noted. Based upon the patient's clinical course and objective findings, at the present time, it appears that the elevated troponin I levels is thought to be related to a non-STEMI type II related to her underlying noncardiovascular conditions superimposed upon her cardiovascular history. She has undergone further evaluation with a transthoracic echocardiogram. Her overall LV systolic function appears to be preserved. She will continue medical management. (2) CAD (coronary artery disease): PLAN: The patient did undergo diagnostic cardiac catheterization at [facility] on 02-06-2021. The results are as noted. It appears at that time she had no angiographically significant appearing CAD. Based upon their report it was felt that at that time she experienced a Takotsubo syndrome/cardiomyopathy. The patient will continue medical therapy at this time. (3) COPD exacerbation: PLAN: The patient is thought to have an underlying COPD exacerbation. This may be the etiology for her abnormal troponin I levels. She does state that she wears her O2 nasal cannula [id number] at home. She is undergoing evaluation care by internal medicine. She states that she feels better with her breathing at this time. Addt'l Comments Of note, her transthoracic echocardiogram did raise concerns of a somewhat mobile linear echodensity of uncertain etiology in the IVC. She subsequently underwent additional evaluation with an abdominal CT. The results are noted. There did not appear to be any pathologic findings with respect to her IVC. Thus the aforementioned echocardiographic findings appear compatible with echocardiographic reverberation/artifact. Overall from a cardiovascular standpoint the patient will continue medical management. It does not appear she requires further cardiac diagnostic studies/intervention at this time. She was asked to continue to follow-up with her primary zipper trimmer in the [place], [place] area. Thank you for allowing me to participate in the care of your patient. Please don't hesitate to call if any issues arise. This note was generated using a voice recognition system and there may be incorrect words, spelling or punctuation that were not noted when reviewing the office note prior to saving. Procedure Criteria Type of Procedure Procedure Type: Elective Elective Risks - COVID COVID Risk Discussion: The surgeon/proceduralist and patient have discussed in detail the risk of exposure to and/or potential harm posed by the COVID-19 virus with having a surgery/procedure at this time versus the risk of delaying the surgery/procedure. It is not possible to know either the risk of delaying the surgery or procedure or chance of getting an infection with perfect accuracy, but a joint decision was made between the patient and the surgeon/proceduralist to proceed at this time with the scheduled surgery/procedure as indicated on the consent form.
[2022-03-15] MEDS: Ceftriaxone 1 GM/50 ML BAG IV (09:42)
[2022-03-15] MEDS: 0.9% Saline Lock 10 ML Syringe IV (09:43)
--- NOTE | 2022-03-15 10:46 | CASEMGMT ---
Addendum entered by Kary Paris 03/15/22 11:38: Pt updated on [facility], voices understanding. Pt voices no further questions/concerns/needs. Alo BLAS CM Original Note: [facility] states they can accept pt and is aware of d/c today. Amelia called stating they are unable to staff pt at this time. This RN CM to room to update pt but she is sleeping without distress, pt does not awaken to knock on door or verbal stimulation. CM to update pt later. Alo BLAS CM
[2022-03-15] MEDS: Calcium Carbonate 500 MG Tablet PO (12:48)
--- NOTE | 2022-03-15 16:55 | PCM.DC.SUM ---
Providers Date of Admission: 03/12/22 Date of Discharge: 03/15/22 Primary Care Physician: Ivana Lincoln Consultations 03/13/22 12:23 Consult: Cardiology Routine Consulting Provider: Dong Nova Reason for Consult: NSTEMI EMERGENT Consult: Yes MD Notified: Yes Date Notified: 03/13/22 Time Notified: 12:23 Method of Notification: Text Reason For Visit: COPD EXACERBATION, NSTEMI Diagnosis Discharge Diagnosis (1) Elevated troponin: Status: Acute Code(s): R77.8 - Other specified abnormalities of plasma proteins (2) CAD (coronary artery disease): Status: Acute Code(s): I25.10 - Atherosclerotic heart disease of [place] coronary artery without angina pectoris Plan 1.Acute COPD exacerbation in a patient with chronic hypoxic respiratory failure, on 2 L of oxygen 2. Acute non-STEMI, most likely type II 3. Acute UTI 4. Recent falls/chronic pain syndrome, 5. Malnutrition, moderate, chronic, 6. Hypothyroidism 7. Depression Medications at Discharge Home Medications albuterol sulfate 90 mcg/actuation aerosol inhaler 2 puff inhalation Q4H PRN SOB 03/12/22 atorvastatin 40 mg tablet 40 mg PO QHS cholesterol 03/12/22 budesonide-formoterol HFA 160 mcg-4.5 mcg/actuation aerosol inhaler (Symbicort) 2 puff inhalation BID breathing 03/12/22 bupropion HCl 150 mg 24 hr tablet, extended release 150 mg PO BID pain 03/12/22 clopidogrel 75 mg tablet 75 mg PO DAILY anti platelet 03/12/22 fluticasone propionate 50 mcg/actuation nasal spray,suspension 1 spray intranasal BID allergies 03/12/22 furosemide 20 mg tablet 20 mg PO DAILY diuretic 03/12/22 gabapentin 300 mg capsule 300 mg PO QHS nerve pain 03/12/22 hydromorphone 4 mg tablet 4 mg PO BID pain 03/12/22 isosorbide mononitrate 30 mg tablet,extended release 24 hr 30 mg PO DAILY heart 03/12/22 levothyroxine 100 mcg tablet 100 mcg PO DAILY thyroid 03/12/22 pantoprazole 40 mg tablet,delayed release 40 mg PO DAILY reflux 03/12/22 sacubitril 24 mg-valsartan 26 mg tablet (Entresto) 1 tab PO BID heart 03/12/22 sertraline 50 mg tablet 50 mg PO DAILY mental health 03/12/22 tiotropium bromide 18 mcg capsule with inhalation device (Spiriva with HandiHaler) 1 cap inhalation DAILY breathing 03/12/22 tizanidine 2 mg tablet 2 mg PO TID PRN Muscle Spasm 03/12/22 tramadol 50 mg tablet 1 mg PO Q8H PRN Pain 03/12/22 amoxicillin 500 mg-potassium clavulanate 125 mg tablet (Augmentin) 1 tab PO BID UTI. Start 03/15/22 4 days #8 tabs 03/15/22 carvedilol 3.125 mg tablet 6.25 mg PO BID #60 tabs 03/15/22 lidocaine 5 % topical patch 1 patch topical DAILY 14 days #30 ea 03/15/22 prednisone 20 mg tablet 40 mg PO DAILY 3 days #6 tabs 03/15/22 Hospital Course Procedures Transthoracic echo Summary of Care Provided Minutes Spent on Discharge: 35 Hospital Course: Ms. Martinez is a 76-year-old female with a history of COPD on 2 L of O2 as well as Takotsubo cardiomyopathy who presented to [facility] 03/12/2022 with increasing shortness of breath despite her oxygen. She then suffered a slow fall . She was brought to the ER and head CT and spine x-rays showed no acute process. She was diagnosed with COPD exacerbation and given methylprednisone bronchodilators. She was noted to have elevated troponin and cardiology was consulted and she was initially placed on a heparin drip. Was felt to be a type II event secondary to her breathing and COPD exacerbation and heparin was discontinued. Echo showed a questionable linear density that was mobile but follow-up CT did not demonstrate that. Otherwise echo overall unremarkable. Additionally she is found to have a urinary tract infection and will need 4 more days of Augmentin, she grew pansensitive E. coli. She will need 2 further days of prednisone, continue home inhalers. She did continue have back pain and lidocaine patches were added in addition to her home pain medications. Her blood pressure also remained elevated and her carvedilol was increased. On the day of discharge her breathing was back to baseline per patient, did continue to have back pain which was chronic and she is willing to try lidocaine patches. Denies chest pain. No other acute complaints Physical Exam Const alert and no apparent distress Constitutional Narrative: Oriented HEENT normocephalic and head/scalp atraumatic Eyes Eyes Narrative: EOM grossly intact, anicteric Neck supple Neck Narrative: Positive JVD. No thyromegaly. Resp Resp Narrative: Scattered wheezes Cardio regular rate and regular rhythm GI soft to palpation, non-tender and non-distended Extremity Extremity Narrative: No edema appreciated Neuro moves all extremities Neuro Narrative: No overt focal deficits appreciated Psych affect normal Psych Narrative: Cooperative Weight / BMI Weight Weight: 42.6 kg Body Mass Index (BMI) 18.3 ABG / Lab / Microbiology Data Result Diagrams: 03/15/22 05:46 03/15/22 05:46 Laboratory: Laboratory Results - last 24 hr 03/15/22 05:46: WBC 12.6 H, RBC 3.97 L, Hgb 10.5 L, Hct 33.3 L, MCV 83.9, MCH 26.4 L, MCHC 31.5 L, RDW Std Deviation 43.6, RDW Coeff of Haley 14.1, Plt Count 230, MPV 9.6, Immature Gran % (Auto) 0.800, Neut % (Auto) 80.3 H, Lymph % (Auto) 7.5 L, [place] % (Auto) 11.3 H, Eos % (Auto) 0.0, Baso % (Auto) 0.1, Absolute Neuts (auto) 10.1 H, Absolute Lymphs (auto) 0.94, Nucleated RBC % 0 03/15/22 05:46: Sodium 141, Potassium 3.7, Chloride 106, Carbon Dioxide 28.0, Anion Gap 7, BUN 17, Creatinine 0.36 L, Estim Creat Clear Calc 33.19, Est GFR (MDRD) Af Amer 226, Est GFR (MDRD) Non-Af 187, BUN/Creatinine Ratio 47.2 H, Glucose 113 H, Calcium 9.2, Total Bilirubin 0.30, AST 18, ALT 24, Alkaline Phosphatase 67, Total Protein 6.4, Albumin 3.2, Globulin 3.2, Albumin/Globulin Ratio 1.0 Microbiology: Microbiology 03/13/22 03:23 Urine, Clean Catch Urine Culture - Final Escherichia coli 03/13/22 14:36 Mucosa - Nasopharyngeal Respiratory Panel (PCR) - Final D/C Instructions Discharge Diet: 2000 mg Sodium Diet Meaningful Use Info Meaningful Use Diagnoses (Choose all that apply): None applicable Discharge Plan Admission Admit Date/Time: 03/12/22 18:55 Primary Reason for Your Visit: Shortness of breath Attending Provider: Jannette Crawford Primary Care Provider: Ivana Lincoln Consulting Providers: Xavi Almendarez ; Dong Nova ; Magdalena Lion Instructions Patient Instructions: Shortness of Breath Coping, ED Dyspnea Additional Instructions / Restrictions: *Please take this with you to your next doctors appointment* -You were found to have a urinary tract infection and you are given 3 days of antibiotics in the hospital, you will need 4 more days. Augmentin will be sent to your preferred pharmacy on file -You were started on steroids for your breathing, today is your third day of steroids, please take a dose of prednisone today followed by 2 more days of prednisone - Continue home inhalers -Continue your home pain medications, please follow-up with your pain management doctor on discharge -Due to your continued pain lidocaine patches were sent to your preferred pharmacy on file which is listed as [facility], [facility] [address], [place]. -It was indicated on your home medication list that you take bupropion 150 mg twice daily, please take first dose in the morning and the second dose no later than 6 PM -Your blood pressure remained high during admission, your carvedilol was increased to 6.25 twice daily on the day of discharge. Please monitor your blood pressure as an outpatient and discuss this with your primary care physician at your follow-up appointment -Please follow with your heart doctor upon discharge -Please follow with your lung doctor upon discharge. -Please call your primary care provider's office upon discharge to schedule a hospital follow up within 1 week. -For any concerning signs or symptoms please call 911 or proceed to the nearest emergency department Discharge Orders/Prescriptions Prescriptions: New lidocaine 5 % Adhesive Patch,Medicated 1 patch topical DAILY 14 Days Qty: 30 0RF Protocol: *Topical Application Instructions APPLICATION INSTRUCTIONS: put patch on for 12 hours and remove for 12 hours prednisone 20 mg tablet 40 mg PO DAILY 3 Days Qty: 6 0RF amoxicillin-pot clavulanate [Augmentin] 500-125 mg tablet 1 tab PO BID 4 Days Qty: 8 0RF Continued atorvastatin 40 mg tablet 40 mg PO QHS tizanidine 2 mg tablet 2 mg PO TID PRN (Reason: Muscle Spasm) Label Comments: TAKE 1 TABLET BY MOUTH THREE TIMES DAILY NEEDED FOR MUSCLE SPASM isosorbide mononitrate 30 mg tablet extended release 24 hr 30 mg PO DAILY Label Comments: TAKE 1 TABLET BY MOUTH EVERY MORNING clopidogrel 75 mg tablet 75 mg PO DAILY Label Comments: TAKE 1 TABLET BY MOUTH EVERY DAY tramadol 50 mg tablet 1 mg PO Q8H PRN (Reason: Pain) levothyroxine 100 mcg tablet 100 mcg PO DAILY Label Comments: TAKE 1 TABLET BY MOUTH EVERY DAY BEFORE A MEAL pantoprazole 40 mg tablet,delayed release (DR/EC) 40 mg PO DAILY Label Comments: TAKE 1 TABLET BY MOUTH EVERY DAY gabapentin 300 mg capsule 300 mg PO QHS Label Comments: TAKE 1 CAPSULE BY MOUTH AT BEDTIME furosemide 20 mg tablet 20 mg PO DAILY Label Comments: TAKE 1 TABLET BY MOUTH EVERY DAY albuterol sulfate 90 mcg/actuation HFA aerosol inhaler 2 puff INHALATION Q4H PRN (Reason: SOB) Label Comments: INHALE 2 PUFFS BY MOUTH EVERY 4 TO 6 HOURS NEEDED hydromorphone 4 mg tablet 4 mg PO BID fluticasone propionate 50 mcg/actuation spray,suspension 1 spray INTRANASAL BID Label Comments: SHAKE LIQUID AND USE 1 SPRAY IN EACH NOSTRIL TWICE DAILY sertraline 50 mg tablet 50 mg PO DAILY Label Comments: TAKE 1 TABLET BY MOUTH EVERY DAY bupropion HCl 150 mg tablet extended release 24 hr 150 mg PO BID Label Comments: TAKE 1 TABLET BY MOUTH TWICE DAILY Spiriva with HandiHaler 18 mcg capsule, w/inhalation device 1 cap INHALATION DAILY Label Comments: INHALE THE CONTENTS OF 1 CAPSULE VIA INHALATION DEVICE EVERY DAY budesonide-formoterol [Symbicort] 160-4.5 mcg/actuation HFA aerosol inhaler 2 puff INHALATION BID Label Comments: INHALE TWO PUFFS TWICE DAILY Entresto 24-26 mg tablet 1 tab PO BID Label Comments: TAKE 1 TABLET BY MOUTH TWICE DAILY Changed carvedilol 3.125 mg tablet 6.25 mg PO BID Qty: 60 0RF Label Comments: TAKE 1 TABLET BY MOUTH TWICE DAILY WITH MEALS Referrals / Follow Up: Ivana Lincoln [Other] - Within 1 Week [facility] Doctor,Out of [Non-Staff] - Disposition Disposition (needs filled in before D/C Order can be placed): Home Health Service Charges/Coding Visit Charges Inpatient E&M: 22261 Subs Hosp L2
== END 2022-03-15 13:28 | disposition home health service (06) | DRG 190 ==
LOC: ED 18:19 → PCU 20:36
PROVIDERS: Family Medicine; Internal Medicine; Emergency Provider Emergency Medicine; Visit Provider Internal Medicine
DX: J44.1 Chronic obstructive pulmonary disease with (acute) exacerbation (principal); I21.A1 Myocardial infarction type 2; E44.0 Moderate protein-calorie malnutrition; I51.81 Takotsubo syndrome; J96.11 Chronic respiratory failure with hypoxia; Z68.1 Body mass index [BMI] 19.9 or less, adult; N39.0 Urinary tract infection, site not specified; I73.9 Peripheral vascular disease, unspecified; I50.9 Heart failure, unspecified; E03.9 Hypothyroidism, unspecified; S20.229A Contusion of unspecified back wall of thorax, initial encounter; I25.10 Atherosclerotic heart disease of native coronary artery without angina pectoris; W19.XXXA Unspecified fall, initial encounter; Z79.2 Long term (current) use of antibiotics; Z87.891 Personal history of nicotine dependence; G89.4 Chronic pain syndrome; Z79.02 Long term (current) use of antithrombotics/antiplatelets; F32.A Depression, unspecified; Z79.82 Long term (current) use of aspirin; Z85.3 Personal history of malignant neoplasm of breast
CPT/HCPCS: 36415; 70450; 71045; 71275; 72040; 72100; 72220; 74160; 80048; 80053; 80061; 81001; 83735; 84484; 85025; 85610; 85730; 87077; 87086; 87088; 87186; 87633; 93005; 93306; 94640; 94667; 94668; 97162; 97166; 97530; 97535; 97802; 99285; Q9967; A4216